=== PATIENT | female | born 1940 | race Hispanic/Latino ===

== ENCOUNTER 2017-07-16 21:35 | Inpatient (IN) | payer OTHER ==
[~2017-07-16] VITALS: Ht 149.9 cm; Wt 44.1 kg
[2017-07-16 22:33] LABS: BASOPHILS % 0.4 % (0.0-1.0); EOSINOPHILS # (AUTO) 0.1 (0.0-0.4); EOSINOPHILS % 1.3 % (0.0-6.0); LYMPHOCYTES # (AUTO) 1.6 (1.0-3.2); LYMPHOCYTES % 14.2 % (18.0-39.1); MEAN CORPUSCULAR HEMOGLOBIN 25.6 pg (28-32); MEAN CORPUSCULAR HGB CONC 30.7 g/dL (31-35); MEAN CORPUSCULAR VOLUME 83.2 fL (81-99); MONOCYTES # (AUTO) 0.7 (0.2-0.8); MONOCYTES % 6.2 % (4.4-11.3); NEUTROPHILS # (AUTO) 8.5 (2.1-6.9); NEUTROPHILS % 77.4 % (38.7-80.0); PLATELET COUNT 589 x10e3/uL (140-360); RED BLOOD COUNT 2.62 x10e6/uL (3.6-5.1)
[2017-07-16 22:38] LABS: HEMOGLOBIN 6.7 g/dL (12.0-16.0)
[2017-07-16 22:39] LABS: HEMATOCRIT 21.8 % (34.2-44.1)
[2017-07-16 22:47] LABS: INR 0.97; PROTHROMBIN TIME 12.1 seconds (11.9-14.5)
[2017-07-16 23:00] LABS: ALBUMIN 2.5 g/dL (3.5-5.0); ALBUMIN/GLOBULIN RATIO 0.5 (0.8-2.0); CALCIUM 9.8 mg/dL (8.4-10.2); CREATININE, SERUM 3.8 mg/dL (0.57-1.11)
[2017-07-17] VITALS (9 sets, daily range): BP systolic 137–171; BP diastolic 58–69
[2017-07-17] MEDS ORDERED: DEXTROSE 50% SYRINGE 50 ML IV PRN (00:15)
[2017-07-17] MEDS ORDERED: SODIUM CHLORIDE 0.9% 250ML 250 ML IV ONE (00:15)
[2017-07-17] MEDS ORDERED: SODIUM CHLORIDE FLUSH 10 ML SYR INJ PRN (00:15)
[2017-07-17] MEDS ORDERED: ONDANSETRON HCL 4 MG ORAL DISINTEGRATING TAB PO PRN (00:15)
[2017-07-17] MEDS ORDERED: LEVEMIR100 UNIT/1 SC (03:24)
[2017-07-17] MEDS ORDERED: SIMVASTATIN40 MG PO (03:24)
[2017-07-17] MEDS ORDERED: CLOPIDOGREL75 MG PO (03:24)
[2017-07-17] MEDS ORDERED: AMLODIPINE BESYL5 MG PO (03:24)
[2017-07-17] MEDS ORDERED: ASPIR 8181 MG PO (03:24)
[2017-07-17] MEDS ORDERED: OMEPRAZOLE40 MG PO (03:24)
[2017-07-17] MEDS ORDERED: LEVETIRACETAM500 MG PO (03:24)
[2017-07-17] MEDS ORDERED: METOPROLOL TART50 MG PO (03:24)
[2017-07-17] MEDS ORDERED: HEMOCYTE PO (03:24)
[2017-07-17] MEDS ORDERED: CLONIDINE HCL0.1 MG PO (03:24)
[2017-07-17] MEDS ORDERED: SODIUM CHLORIDE 0.9% 250ML 250 ML ONE ×2 (03:29→07:48)
[2017-07-17] MEDS: FUROSEMIDE INJ 10 MG/ML 2 ML VIAL IV SCH ×2 (06:42→12:05)
[2017-07-17] MEDS: INSULIN REGULAR, HUMAN 100 UNIT/1 ML 3ML VIAL SQ SCH ×4 (07:30→21:38)
[2017-07-17] MEDS ORDERED: CLONIDINE HCL 0.1 MG TAB PO PRN (10:30)
[2017-07-17] MEDS ORDERED: AMLODIPINE BESYLATE 5 MG TAB PO PRN (10:30)
[2017-07-17] MEDS ORDERED: POTASSIUM CHLORIDE 20 MEQ TAB CR PO ONE (11:15)
[2017-07-17] MEDS ORDERED: SODIUM BICARBONATE 650 MG TAB PO SCH (14:00)
[2017-07-17 14:19] LABS: BASOPHILS # (AUTO) 0.1 (0.0-0.1); BASOPHILS % 0.7 % (0.0-1.0); EOSINOPHILS # (AUTO) 0.2 (0.0-0.4); EOSINOPHILS % 1.4 % (0.0-6.0); HEMATOCRIT 33.9 % (34.2-44.1); LYMPHOCYTES # (AUTO) 1.2 (1.0-3.2); LYMPHOCYTES % 9.9 % (18.0-39.1); MEAN CORPUSCULAR HEMOGLOBIN 27.5 pg (28-32); MEAN CORPUSCULAR HGB CONC 32.4 g/dL (31-35); MEAN CORPUSCULAR VOLUME 84.8 fL (81-99); MONOCYTES # (AUTO) 0.4 (0.2-0.8); MONOCYTES % 3.7 % (4.4-11.3); NEUTROPHILS # (AUTO) 9.9 (2.1-6.9); NEUTROPHILS % 83.9 % (38.7-80.0); PLATELET COUNT 541 x10e3/uL (140-360); RED CELL DISTRIBUTION WIDTH 15.2 % (11.7-14.4)
[2017-07-17 14:35] LABS: ANION GAP 16.9 mmol/L (8-16); CALCIUM 10.3 mg/dL (8.4-10.2); CREATININE, SERUM 3.82 mg/dL (0.57-1.11); POTASSIUM 4.9 mmol/L (3.5-5.1)
[2017-07-17] MEDS: LEVETIRACETAM 500 MG TAB PO SCH (16:56)
[2017-07-17] MEDS: SODIUM BICARBONATE 650 MG TAB PO SCH (17:05)
--- NOTE | 2017-07-17 17:36 | Consultation ---
DATE OF CONSULTATION: July 17, 2017 History primarily from the patient. REASON FOR CONSULTATION: Acute kidney injury. HISTORY OF PRESENT ILLNESS: A 77-year-old female who was quite thin built, emaciated. She had been admitted to the hospital with anemia. PAST MEDICAL HISTORY: Significant for hypertension, type 2 diabetes, peripheral neuropathy. Patient denies any prior history of any renal insufficiency, kidney stone disease or hematuria. Follows Dr. Vasu Ricci as an outpatient. REVIEW OF SYSTEMS: Currently denies chest pain, shortness of breath, nausea or vomiting. ALLERGIES: CIPRO. CURRENT MEDICATIONS: Please see MAR for details. She is actively on sodium bicarbonate 1300 mg p.o. q.4 h., which I am going to stop. She is on Tylenol p.r.n., amlodipine 5 mg daily p.r.n., aspirin 81 mg to chew, clonidine 0.1 mg p.r.n., Plavix 75 mg daily, insulin, Keppra 750 mg p.o. b.i.d., metoprolol 50 mg daily, pantoprazole 40 mg daily. She is on simvastatin 40 mg nightly. CURRENT LABS: Show white count of 11.8. Hemoglobin 11, status post transfusion. Platelets 541. Chemistry shows iron level of 248, total iron binding capacity of 283, 88% iron saturation, transferrin of 208. Chemistry shows sodium 134, potassium 4.9. Creatinine 3.8. Bicarbonate 21. Blood sugar 294. Calcium 10.3. Albumin of 2.5. Yesterday calcium was 9.8. She is also stool occult blood positive. She had a carotid Doppler study done. SOCIAL HISTORY: Does not smoke or drink. PHYSICAL EXAMINATION: GENERAL: Awake, alert, lying supine. No apparent distress. VITALS: Blood pressure 142/61, pulse rate 80. HEAD AND NECK: Thin-built thin female with poor muscle mass. Neck veins flat. Quite emaciated with bitemporal wasting and sunken eyes. LUNGS: Decreased air entry, poor voluntary effort. No rales. HEART: S1 and S2 audible. Soft 2-3/6 ejection systolic murmur heard over left sternal border. ABDOMEN: Otherwise soft and nontender. LOWER EXTREMITY EXAMINATION: Shows no edema. IMPRESSION AND PLAN: Acute kidney injury, possible acute tubular necrosis. Underlying long-standing diabetes. Multiple comorbidities. Will discontinue p.o. bicarbonate. Has significantly elevated iron levels and elevated calcium. Will repeat. Calcium was normal yesterday at 10.3. Today I will repeat all these labs. Obtain spot urine protein creatinine ratio. Adjust the dose sodium bicarbonate from q.4 to 3 times a day. She does have evidence of distal renal tubular acidosis, probably related to diabetic nephropathy with an acute injury component. Workup ordered. Discussed with son. Discussed with patient. Please see orders. Job#: [id number] HIMANSHU
--- NOTE | 2017-07-17 18:21 | History and Physical ---
CLINICAL HISTORY: This is a 77-year-old white woman, patient of Dr. Berry Ricci, admitted via the emergency room because of severe anemia with hemoglobin of 6.7. According to the family, she had similar episodes in 2016 when she was admitted to [facility] and required blood transfusion. She has seen Dr. Mujica for gastroenterology and had endoscopy on 12/07/2016 because of peptic ulcer disease. Reportedly, there was no internal bleeding at that time. The patient takes iron tablets on a regular basis and, therefore, her stool is always black. She has been taking iron for at least 4 months. It is not clear whether her INR was still normal on whether she has low level Epogen because she also has chronic kidney disease. Her BUN is 92, creatinine 3.8. Apparently, she is not followed by nephrology on a regular basis. GFR is already down to 12. PAST MEDICAL HISTORY: Remarkable for diabetes, hypertension, hyperlipidemia. Reportedly, she had 2 strokes in 2002 effecting her left side. She had a third stroke in 2015 also effecting the left side. Son apparently is blaming [facility] for her strokes, reportedly caused by intubation and by central line. I have explained that these are probably not the causes of her stroke. BUN and creatinine had from explained the patient probably not the cause of her stroke. It is not clear whether she has had a previous stroke workup. She is, however, still taking Plavix in the setting of severe anemia. In addition to all this, she has seizure disorder and is taking Keppra. MEDICATIONS: Include aspirin 81 mg per day, amlodipine 5 mg p.o. daily, clonidine 0.1 mg p.o. t.i.d., insulin 20 units nightly, Keppra 750 mg p.o. b.i.d., metoprolol tartrate 50 mg p.o. daily, omeprazole 40 mg p.o. daily, simvastatin 40 mg p.o. daily. She is taking 106 mg p.o. b.i.d. PAST SURGICAL HISTORY: section, appendectomy and tonsillectomy. FAMILY HISTORY: Father had coronary artery disease. Mother had diabetes. Sister and 2 brothers had diabetes. SOCIAL HISTORY: Denies smoking, drinking or drug abuse. She is disabled. She is essentially 100% care need, confined to her bed except getting around in a wheelchair. She wears a diaper. She has a healthcare provider at home, and son helps her with the rest. REVIEW OF SYSTEMS: Noncontributory. PHYSICAL EXAMINATION: GENERAL: She is alert and coherent, somewhat lethargic. Speaks slowly and softly, difficult to understand. CARDIOVASCULAR: Jugular veins are not distended. S1 and S2 were regular. There are no appreciable murmurs. LUNGS: Clear. ABDOMEN: Soft. Bowel sounds are present. EXTREMITIES: Showed no cyanosis, clubbing or edema. LABORATORY: [place] [id number] hemoglobin 6.7 platelet count 500 and 9000. BUN is 22 creatinine 3.8 bicarb 18 potassium 5.0 sodium 131. As mentioned, her white count is 10,900, hemoglobin of 6.7 and platelet count 509,000. BUN is 92. Creatinine 3.8. Bicarb 18. Potassium 5.0. Sodium 131. IMPRESSION: 1. Severe anemia with hemoglobin 6.7 with last transfusion 2 years ago of undetermined etiology. Since her stool is black caused by iron tablets, we are not sure whether she is still bleeding. We are unable to get sed rate, Epogen level or iron level since the patient already started on transfusion. No doubt her renal insufficiency contributes to her anemia and she may benefit from Epogen. 2. Previous peptic ulcer disease. 3. Chronic kidney disease. GFR 12. 4. Diabetes. 5. Hypertension. 6. Hyperlipidemia. 7. Three previous cerebrovascular accidents between 2002 and 2016. 8. Seizure disorder, related stroke. RECOMMENDATIONS: Continue blood transfusion. GI and renal consultation. Consider Epogen injection. Consider workup for her seizures including EKG, echocardiogram, Doppler scan of the carotids if not previously done. She may require repeat endoscopy. Job#: [id number] cc:DEIDRE MUJICA MD cc:BERRY RICCI MD
--- NOTE | 2017-07-17 20:16 | Diagnostic Imaging Report ---
EXAM: CHEST 2 VIEWS, PA and lateral INDICATION: Weakness, CHF COMPARISON: None FINDINGS: LINES/TUBES: None LUNGS: No consolidations or edema. PLEURA: No effusions or pneumothorax. HEART AND MEDIASTINUM: Normal size and contour. BONES AND SOFT TISSUES: No acute findings. Old posterior left rib fracture. IMPRESSION: No evidence of pulmonary edema. No acute thoracic abnormality. Signed by: Dr. Latonia Pastrana M.D. on 07/17/2017 8:13 PM
[2017-07-17] MEDS: SIMVASTATIN 40 MG TAB PO SCH (21:37)
[2017-07-18] VITALS (9 sets, daily range): BP systolic 124–163; BP diastolic 60–68
--- NOTE | 2017-07-18 03:32 | Diagnostic Imaging Report ---
EXAM: Renal Ultrasound INDICATION: Chronic anemia COMPARISON: None TECHNIQUE: Transverse and longitudinal sonographic images of the kidneys and bladder were obtained. FINDINGS: RIGHT KIDNEY: 9.5 x 4.9 x 5.4 cm, normal cortical thickness. Echogenicity: Normal Hydronephrosis: Mild Calculi: None Cyst/Mass: Simple cyst measuring 2.1 x 1.8 x 1.7 cm LEFT KIDNEY: 8.9 x 6 x 6.7 cm, normal cortical thickness. Echogenicity: Normal Hydronephrosis: Moderate Calculi: None Cyst/Mass: None BLADDER: Decompressed by Price catheter. IMPRESSION: Moderate left and mild right hydronephrosis. Signed by: Dr. Latonia Pastrana M.D. on 07/18/2017 3:28 AM
[2017-07-18] MEDS: METOPROLOL TARTRATE 50 MG TAB PO SCH (04:51)
[2017-07-18 06:07] LABS: BASOPHILS # (AUTO) 0.1 (0.0-0.1); BASOPHILS % 0.6 % (0.0-1.0); EOSINOPHILS # (AUTO) 0.1 (0.0-0.4); EOSINOPHILS % 0.4 % (0.0-6.0); HEMATOCRIT 36.6 % (34.2-44.1); HEMOGLOBIN 11.9 g/dL (12.0-16.0); LYMPHOCYTES # (AUTO) 0.8 (1.0-3.2); MEAN CORPUSCULAR HEMOGLOBIN 27.2 pg (28-32); MEAN CORPUSCULAR HGB CONC 32.5 g/dL (31-35); MEAN CORPUSCULAR VOLUME 83.8 fL (81-99); MONOCYTES # (AUTO) 0.7 (0.2-0.8); MONOCYTES % 4.2 % (4.4-11.3); NEUTROPHILS # (AUTO) 14.9 (2.1-6.9); NEUTROPHILS % 89.4 % (38.7-80.0); PLATELET COUNT 573 x10e3/uL (140-360); RED BLOOD COUNT 4.37 x10e6/uL (3.6-5.1); RED CELL DISTRIBUTION WIDTH 15.4 % (11.7-14.4)
[2017-07-18 06:29] LABS: ALBUMIN 2.8 g/dL (3.5-5.0); ALBUMIN/GLOBULIN RATIO 0.6 (0.8-2.0); ANION GAP 19.6 mmol/L (8-16); CALCIUM 10.1 mg/dL (8.4-10.2); CREATININE, SERUM 3.71 mg/dL (0.57-1.11); POTASSIUM 4.6 mmol/L (3.5-5.1)
[2017-07-18] MEDS: INSULIN REGULAR, HUMAN 100 UNIT/1 ML 3ML VIAL SQ SCH ×4 (08:03→20:21)
[2017-07-18] MEDS: INSULIN DETEMIR 100 UNIT/ML PEN SQ SCH (08:07)
[2017-07-18] MEDS: LEVETIRACETAM 500 MG TAB PO SCH ×2 (08:07→16:37)
[2017-07-18] MEDS: SODIUM BICARBONATE 650 MG TAB PO SCH ×2 (08:07→16:38)
[2017-07-18] MEDS: PANTOPRAZOLE SOD 40 MG TABEC PO SCH (08:07)
[2017-07-18] MEDS ORDERED: CLOPIDOGREL BISULFATE 75 MG TAB PO SCH (09:00)
[2017-07-18] MEDS ORDERED: ASPIRIN 81 MG CHEW TAB PO SCH (09:00)
--- NOTE | 2017-07-18 13:09 | Cardiology Report ---
DATE OF STUDY: July 17, 2017 DOPPLER SCAN OF THE CAROTIDS The left and right carotid arteries were interrogated using the Duplex scanning method. There is moderate plaquing in both carotid bulbs. However, there was no high-grade stenosis. Vertebral flow appears to be normal direction bilaterally. CONCLUSION: 1. No high-grade stenosis bilaterally. 2. Moderate plaquing noted in both carotid bulbs. 3. Mild intimal thickening and plaquing elsewhere bilaterally. 4. Vertebral flow appears to be normal direction bilaterally. Job#: [id number]
--- NOTE | 2017-07-18 13:12 | Cardiology Report ---
DATE OF STUDY: July 17, 2017 ECHOCARDIOGRAM M-MODE: Normal chamber wall dimensions. Normal contractility. Aortic sclerosis. Normal mitral and tricuspid valves. No pericardial effusion. SECTOR SCAN: Normal chamber wall dimensions. Normal contractility. Ejection fraction is approximately 60%. Aortic valve sclerotic. Mitral and tricuspid valves are normal. There is no pericardial effusion. CARDIAC DOPPLER STUDY WITH COLOR: Trace mitral regurgitation. CONCLUSION: 1. Aortic sclerosis without stenosis. 2. Trace mitral regurgitation. 3. Left ventricular ejection fraction is approximately 60%. Job#: [id number]
[2017-07-18] MEDS: ACETAMINOPHEN 325 MG TAB PO PRN (19:23)
[2017-07-18] MEDS: SIMVASTATIN 40 MG TAB PO SCH (20:36)
[2017-07-19] VITALS (7 sets, daily range): BP systolic 90–178; BP diastolic 40–84
[2017-07-19] MEDS: ACETAMINOPHEN 325 MG TAB PO PRN (06:20)
[2017-07-19 06:43] LABS: ALBUMIN 2.5 g/dL (3.5-5.0); ALBUMIN/GLOBULIN RATIO 0.6 (0.8-2.0); ANION GAP 16.2 mmol/L (8-16); CALCIUM 9.1 mg/dL (8.4-10.2); CREATININE, SERUM 3.79 mg/dL (0.57-1.11); POTASSIUM 4.2 mmol/L (3.5-5.1)
[2017-07-19] MEDS: INSULIN REGULAR, HUMAN 100 UNIT/1 ML 3ML VIAL SQ SCH ×4 (07:30→21:40)
[2017-07-19] MEDS: METOPROLOL TARTRATE 50 MG TAB PO SCH (07:44)
[2017-07-19] MEDS: PANTOPRAZOLE SOD 40 MG TABEC PO SCH (08:13)
[2017-07-19] MEDS: SODIUM BICARBONATE 650 MG TAB PO SCH ×2 (09:00→17:00)
[2017-07-19] MEDS: LEVETIRACETAM 500 MG TAB PO SCH ×2 (10:33→17:00)
[2017-07-19] MEDS ORDERED: SODIUM BICARBONATE 650 MG TAB PO ONE ×2 (11:30→17:00)
[2017-07-19] MEDS: INSULIN DETEMIR 100 UNIT/ML PEN SQ SCH (12:04)
[2017-07-19 13:14] LABS: CREATININE,URINE RANDOM 20.74 mg/dL (47-110)
[2017-07-19 13:43] LABS: TOTAL PROTEIN 24HR, URINE 3249.6 mg/24hr (50-100); TOTAL PROTEIN, URINE 270.8 mg/dL (1-14)
[2017-07-19] MEDS ORDERED: SODIUM CHLORIDE 0.9% 1000ML 1,000 ML IV ONE (16:00)
[2017-07-19 16:38] LABS: CREATININE,URINE RANDOM 22.87 mg/dL (47-110)
[2017-07-19] MEDS ORDERED: ALBUMIN 25% 12.5GM 0.25 GM/ML BTL IV ONE (17:00)
[2017-07-19 17:21] LABS: BASOPHILS # (AUTO) 0.1 (0.0-0.1); BASOPHILS % 0.6 % (0.0-1.0); EOSINOPHILS # (AUTO) 0.5 (0.0-0.4); HEMATOCRIT 28.2 % (34.2-44.1); LYMPHOCYTES # (AUTO) 1.5 (1.0-3.2); LYMPHOCYTES % 11.3 % (18.0-39.1); MEAN CORPUSCULAR HEMOGLOBIN 27.2 pg (28-32); MEAN CORPUSCULAR HGB CONC 31.9 g/dL (31-35); MEAN CORPUSCULAR VOLUME 85.2 fL (81-99); MONOCYTES % 7.5 % (4.4-11.3); NEUTROPHILS # (AUTO) 10.3 (2.1-6.9); NEUTROPHILS % 76.2 % (38.7-80.0); PLATELET COUNT 420 x10e3/uL (140-360); RED BLOOD COUNT 3.31 x10e6/uL (3.6-5.1); RED CELL DISTRIBUTION WIDTH 15.8 % (11.7-14.4)
[2017-07-19] MEDS: SIMVASTATIN 40 MG TAB PO SCH (21:43)
[2017-07-20 01:26] VITALS: BP 156/61
[2017-07-20 05:44] VITALS: BP 137/57
[2017-07-20] MEDS: INSULIN REGULAR, HUMAN 100 UNIT/1 ML 3ML VIAL SQ SCH (07:30)
[2017-07-20] MEDS: PANTOPRAZOLE SOD 40 MG TABEC PO SCH (07:30)
[2017-07-20 07:31] LABS: BASOPHILS # (AUTO) 0.1 (0.0-0.1); BASOPHILS % 0.5 % (0.0-1.0); EOSINOPHILS # (AUTO) 0.5 (0.0-0.4); EOSINOPHILS % 3.6 % (0.0-6.0); HEMATOCRIT 28.6 % (34.2-44.1); HEMOGLOBIN 9.2 g/dL (12.0-16.0); LYMPHOCYTES # (AUTO) 1.2 (1.0-3.2); LYMPHOCYTES % 8.6 % (18.0-39.1); MEAN CORPUSCULAR HEMOGLOBIN 27.5 pg (28-32); MEAN CORPUSCULAR HGB CONC 32.2 g/dL (31-35); MEAN CORPUSCULAR VOLUME 85.4 fL (81-99); MONOCYTES % 7.3 % (4.4-11.3); NEUTROPHILS # (AUTO) 11.2 (2.1-6.9); NEUTROPHILS % 79.6 % (38.7-80.0); PLATELET COUNT 438 x10e3/uL (140-360); RED BLOOD COUNT 3.35 x10e6/uL (3.6-5.1); RED CELL DISTRIBUTION WIDTH 15.8 % (11.7-14.4)
[2017-07-20 07:50] LABS: ALBUMIN 2.9 g/dL (3.5-5.0); ALBUMIN/GLOBULIN RATIO 0.8 (0.8-2.0); ANION GAP 16.7 mmol/L (8-16); CALCIUM 8.6 mg/dL (8.4-10.2); CREATININE, SERUM 3.96 mg/dL (0.57-1.11); POTASSIUM 3.7 mmol/L (3.5-5.1)
[2017-07-20 08:00] VITALS: BP 137/57
[2017-07-20 08:10] VITALS: BP 136/54
[2017-07-20] MEDS: INSULIN DETEMIR 100 UNIT/ML PEN SQ SCH (09:00)
[2017-07-20] MEDS: LEVETIRACETAM 500 MG TAB PO SCH (09:00)
[2017-07-20] MEDS: SODIUM BICARBONATE 650 MG TAB PO SCH (09:00)
[2017-07-20] MEDS ORDERED: METOPROLOL TART25 MG PO (09:30)
[2017-07-20] MEDS ORDERED: SODIUM BICARBO650 MG PO (09:37)
--- NOTE | 2017-07-20 13:05 | Discharge Summary ---
CLINICAL HISTORY: This is a 77-year-old woman admitted via the emergency room because of severe anemia requiring blood transfusion and because of metabolic acidosis, end-stage renal disease, potassium 5.0. Please refer to my previous dictations concerning details of current illness, past medical history, personal and social history, family history, review of systems, physical examination, initial laboratory studies. HOSPITAL COURSE: The patient was given bicarbonate therapy with improvement of acidosis as well as potassium with potassium coming down to the 3.7 range. The patient was given blood transfusion, hemoglobin increasing from 6.7 to 11.9 before settling at 9.2. Her stool guaiac was positive. She had previously seen Dr. David Mujica, and a consultation was placed with Dr. David Mujica. She did develop 1 bout of hypotension, and this was felt to be related to volume depletion as well as blood pressure medications. Her Norvasc was discontinued. Metoprolol was withheld but later resumed at 25 mg b.i.d. instead of 50 mg daily. Blood cultures were negative. There was no fever. White count was initially 10,900, remained in a slightly elevated range at 14 at the time of discharge. Urine culture showed no pathology. Blood culture is still pending. During this hospitalization, the patient had a 24-hour urine collection for creatinine, which showed a total protein of 3.2 grams, a urine creatinine of 22. A repeat guaiac was negative. Hepatitis profile still pending. INR was 0.97. The patient was given an option of not having dialysis or have dialysis, and we recommend strongly that she get a dialysis catheter to get ready for dialysis. Nevertheless, the patient also had the option of not deciding. The son, however, after having it explained multiple times that these were the options, had claimed that we were trying to force him to sign the consent for dialysis. Initially he said he probably would be in favor of dialysis but was concerned about transportation issues since he has to work. Based on that, we had set her up to have a dialysis catheter placed by [facility]. However, the night before, the patient's son suddenly said that he was expecting his mother to be discharged. At that point, her blood pressure was slightly low and we decided to give her some fluid and withhold her blood pressure medications, and blood pressure returned to normal. We recommend that she discontinue amlodipine and to take metoprolol 25 mg b.i.d. As repeat stool guaiac was negative, we decided that this can be followed further on outpatient basis by Dr. Mujica. She had no further urinary bleeding. Hemoglobin at the time of discharge was 9.2 and stable. The patient is to follow up with Dr. David Mujica in 3 to 7 days, Dr. Mansoor Avendaño in 3 to 7 days, Dr. Ricci in 7 days. Discharge medications are: Metoprolol tartrate 25 mg b.i.d. Sodium bicarbonate 650 mg p.o. daily. Clopidogrel 75 mg p.o. daily to be withheld if there is bleeding. Detemir insulin 25 units nightly. Keppra 750 mg b.i.d. Omeprazole 40 mg daily. Simvastatin 40 mg daily. Hemocyte 106 mg p.o. b.i.d. She was given activity, diet, medication and followup instructions. NIKUNJ CARABALLO MD Job#: [id number] EV cc:MD MANSOOR TURK MD DANIEL DARMADI, MD
== END 2017-07-20 12:41 | disposition home or self-care (01) | DRG 682 ==
LOC: ER 21:35 → ERHOLD 07-17 00:55 → IMCU 07-17 01:34 → OBSVTOIN 07-19 14:25 → MED/SURG2 07-19 16:12
PROVIDERS: ADMIT Internal Medicine Cardiovascular Disease; ATTEND Internal Medicine Cardiovascular Disease
PROC: 30250N1 (ICD-10-PCS; principal; 2017-07-17)
DX: I12.0 Hypertensive chronic kidney disease with stage 5 chronic kidney disease or end stage renal disease (principal); N18.6 End stage renal disease; N17.0 Acute kidney failure with tubular necrosis; E87.2 Acidosis; I69.354 Hemiplegia and hemiparesis following cerebral infarction affecting left non-dominant side; E87.1 Hypo-osmolality and hyponatremia; E11.22 Type 2 diabetes mellitus with diabetic chronic kidney disease; Z99.2 Dependence on renal dialysis; E86.0 Dehydration; E86.9 Volume depletion, unspecified; Z87.442 Personal history of urinary calculi; E11.21 Type 2 diabetes mellitus with diabetic nephropathy; Z79.4 Long term (current) use of insulin; D63.1 Anemia in chronic kidney disease; G40.909 Epilepsy, unspecified, not intractable, without status epilepticus; Z87.11 Personal history of peptic ulcer disease; E78.5 Hyperlipidemia, unspecified; N93.9 Abnormal uterine and vaginal bleeding, unspecified; Z53.29 Procedure and treatment not carried out because of patient's decision for other reasons
CPT/HCPCS: 36415; 71046; 76770; 80048; 80053; 81050; 82270; 82533; 82570; 82575; 82948; 83540; 83970; 84156; 84466; 84550; 85025; 85610; 85730; 86704; 86706; 86803; 86850; 86900; 86920; 87040; 87086; 93005; 93306; 93880; 99284; G0378; J1940; J7030; J7050; P9016

== ENCOUNTER 2017-10-01 16:09 | Inpatient (IN) | payer MEDICARE, OTHER ==
[~2017-10-01] VITALS: Ht 149.9 cm; Wt 47.7 kg
[2017-10-01] VITALS (16 sets, daily range): BP systolic 94–130; BP diastolic 43–63
[~2017-10-01 16:09] MED LIST: AMLODIPINE BESYL5 MG PO; ASPIR 8181 MG PO; CLONIDINE HCL0.1 MG PO; CLOPIDOGREL75 MG PO; HEMOCYTE PO; LEVEMIR100 UNIT/1 SC; LEVETIRACETAM500 MG PO; METOPROLOL TART25 MG PO; METOPROLOL TART50 MG PO; OMEPRAZOLE40 MG PO; SIMVASTATIN40 MG PO; SODIUM BICARBO650 MG PO
[2017-10-01] MEDS ORDERED: DEXTROSE 50% SYRINGE 50 ML IV ONE ×2 (16:42→22:40)
[2017-10-01 17:07] LABS: BASOPHILS % 0.2 % (0.0-1.0); EOSINOPHILS % 0.2 % (0.0-6.0); LYMPHOCYTES # (AUTO) 0.7 (1.0-3.2); LYMPHOCYTES % 5.2 % (18.0-39.1); MEAN CORPUSCULAR HEMOGLOBIN 29.4 pg (28-32); MEAN CORPUSCULAR HGB CONC 32.9 g/dL (31-35); MEAN CORPUSCULAR VOLUME 89.4 fL (81-99); MONOCYTES # (AUTO) 0.7 (0.2-0.8); MONOCYTES % 4.9 % (4.4-11.3); NEUTROPHILS # (AUTO) 12.3 (2.1-6.9); PLATELET COUNT 633 x10e3/uL (140-360); RED CELL DISTRIBUTION WIDTH 17.6 % (11.7-14.4)
[2017-10-01 17:08] LABS: HEMATOCRIT 16.1 % (34.2-44.1); HEMOGLOBIN 5.3 g/dL (12.0-16.0)
[2017-10-01 17:12] LABS: INR 1.23; PROTHROMBIN TIME 14.6 seconds (11.9-14.5)
[2017-10-01 17:13] LABS: PARTIAL THROMBOPLASTIN TIME 39.6 seconds (23.8-35.5)
[2017-10-01] MEDS ORDERED: SODIUM CHLORIDE 0.9% 250ML 250 ML IV ONE ×4 (17:15→20:45)
[2017-10-01 17:29] LABS: CREATINE KINASE MB 3.2 ng/mL (0-5.0)
[2017-10-01] MEDS ORDERED: INSULIN REGULAR, HUMAN 100 UNIT/1 ML 3ML VIAL IV ONE (17:30)
[2017-10-01] MEDS ORDERED: SOD POLYSTYRENE SULFONATE SUSP 15 GM/60 ML BTL PO ONE (17:30)
[2017-10-01] MEDS ORDERED: CALCIUM GLUCONATE 10% INJ 4.65 MEQ in SODIUM CHLORIDE 0.9% 50ML 50 ML IV ONE (17:30)
[2017-10-01 17:31] LABS: ALBUMIN 2.7 g/dL (3.5-5.0); ALBUMIN/GLOBULIN RATIO 0.6 (0.8-2.0); ANION GAP 25.5 mmol/L (8-16); CALCIUM 9.2 mg/dL (8.4-10.2); CREATININE, SERUM 5.83 mg/dL (0.57-1.11)
[2017-10-01 17:32] LABS: POTASSIUM 7.5 mmol/L (3.5-5.1)
--- NOTE | 2017-10-01 17:41 | Diagnostic Imaging Report ---
EXAMINATION: CHEST SINGLE (PORTABLE) INDICATION: \S\lethargy \S\[id number] \S\1705 COMPARISON: Chest radiograph 07/17/2017 FINDINGS: AP view TUBES and LINES: None. LUNGS: Lungs are well inflated. Lungs are clear. There is no evidence of pneumonia or pulmonary edema. PLEURA: No pleural effusion or pneumothorax. HEART AND MEDIASTINUM: Aortic arch calcifications. The cardiomediastinal silhouette is unremarkable. BONES AND SOFT TISSUES: No acute osseous lesion. Old left rib fracture. Soft tissues are unremarkable. UPPER ABDOMEN: No free air under the diaphragm. IMPRESSION: No acute thoracic abnormality. Signed by: DR. Fawad Cisneros MD on 10/01/2017 5:37 PM
[2017-10-01] MEDS ORDERED: SODIUM CHLORIDE 0.9% 1000ML 1,000 ML IV SCH ×2 (18:00→18:54)
[2017-10-01 18:11] LABS: ALBUMIN 2.4 g/dL (3.5-5.0); ALBUMIN/GLOBULIN RATIO 0.6 (0.8-2.0); ANION GAP 22.9 mmol/L (8-16); CALCIUM 8.8 mg/dL (8.4-10.2); CREATININE, SERUM 5.86 mg/dL (0.57-1.11)
[2017-10-01 18:13] LABS: POTASSIUM 6.9 mmol/L (3.5-5.1)
[2017-10-01] MEDS ORDERED: PANTOPRAZOLE 40 MG 10ML VIAL IV ONE (18:30)
--- NOTE | 2017-10-01 18:32 | Diagnostic Imaging Report ---
ADDENDUM #1 Dose modulation, iterative reconstruction, and/or weight based adjustment of the mA/kV was utilized to reduce the radiation dose to as low as reasonably achievable. Signed by: Dr. Alexia eHrnandez M.D. on 10/11/2017 10:00 AM ORIGINAL REPORT EXAMINATION: Head CT HISTORY: Altered mental status COMPARISON: None. TECHNIQUE: Multidetector axial images were obtained without contrast from the foramen magnum to the vertex . The images were reconstructed using brain and bone algorithms. Thin section brain images were reformatted into coronal and sagittal planes. Image quality: Motion/streaking artifact limits the evaluation of the skull base and posterior cranial fossa. FINDINGS: Parenchyma: 1. Cortico-subcortical encephalomalacia in the right superior middle and inferior frontal gyri as well as the left middle and superior frontal gyri. 2. Chronic lacunar infarct in the genu of the right internal capsule with ipsilateral Wallerian degeneration. 3. No mass or hemorrhage. No CT evidence of acute territorial vascular insult. Extra-axial spaces:No abnormal density. No extra-axial fluid collections Brain volume: Generalized volume loss more that what is expected for age. Ventricles: No hydrocephalus or displacement. Arteries: No density suggestive of thrombus. Dural sinuses: No abnormal density. Extra-axial spaces: No abnormal density. Foramen magnum: No mass, Chiari malformation, or basilar invagination. Sella: No obvious mass. Paranasal/mastoid sinuses: Imaged portions unremarkable. Skull/Scalp: No lytic or blastic lesions. No fractures. IMPRESSION: 1. No acute intracranial hemorrhage or CT evidence of acute cortical infarct. 2. Bilateral frontal cortical infarcts. 3. Generalized brain volume lobes, more than what is expected for age. Signed by: Dr. Alexai Hernandez M.D. on 10/01/2017 6:28 PM
[2017-10-01] MEDS ORDERED: METOPROLOL TART50 MG PO (18:42)
[2017-10-01] MEDS ORDERED: CATAPRES-TTS 11 EACH TD (18:49)
[2017-10-01] MEDS ORDERED: ASPIR-LOW81 MG PO (18:51)
[2017-10-01] MEDS: PANTOPRAZOLE INJ 40 MG in SODIUM CHLORIDE 0.9% 50ML 50 ML IV SCH ×3 (19:00→22:28)
[2017-10-01 19:54] LABS: BILIRUBIN,URINE NEGATIVE (NEGATIVE); CLARITY,URINE CLOUDY (CLEAR); COLOR,URINE YELLOW (YELLOW); KETONES,URINE NEGATIVE (NEGATIVE); LEUKOCYTE ESTERASE ,URINE 2+ (NEGATIVE); NITRITE,URINE NEGATIVE (NEGATIVE); PROTEIN,URINE DIPSTICK 1+ (NEGATIVE); URINE UROBILINOGEN 0.2 mg/dL (0.2 - 1)
[2017-10-01 20:06] LABS: AMORPHOUS SEDIMENT,URINE FEW (FEW); BACTERIA,URINE MODERATE /HPF; RBC,URINE 0-5 /HPF (0-5)
--- NOTE | 2017-10-01 21:03 | Consultation ---
DATE OF CONSULTATION: October 01, 2017 The patient has existing history of chronic kidney disease. She presented with failure to thrive and with very poor oral intake. She is extremely cachectic. She does not follow any commands. She opens her eyes and says she is alright, but other than that unable to get review of systems. She has underlying history of hypertension, type 2 diabetes, peripheral neuropathy. She is followed by Dr. Vasu Ricci. She has existing history of chronic kidney disease, baseline creatinine 3.8. She comes in with life-threatening hyperkalemia. She was seen in Dr. Ricci's office and apparently had a very high potassium. She is also found to have elevated white count, 13.77, hemoglobin 5.3 with a potassium of 7.5, bicarbonate 14 with a BUN 172, creatinine 5.83. LFTs within normal limits. SOCIAL HISTORY: Patient lives at home. There is a provider. Son says he works during the day but leaves food behind for provider to feed her, but there are some issues going on with him, the insurance company and the provider. The patient is not being fed. ALLERGIES: CIPROFLOXACIN. SOCIAL HISTORY: The patient does not smoke or drink. PHYSICAL EXAMINATION: GENERAL: Awake, cachectic, thin-built female with no muscle mass at all with bitemporal wasting, sunken eyes and appears extremely malnourished. VITALS: Blood pressure 108/50, pulse rate 95, afebrile. Oxygen saturation 100%. HEAD AND NECK: Cornea clear. Oral mucosa dry. LUNGS: Relatively clear. HEART: S1 and S2 audible. ABDOMEN: Otherwise soft and nontender. LOWER EXTREMITY EXAMINATION: Shows no edema. IMPRESSION AND PLAN: Life-threatening hyperkalemia with acute kidney injury superimposed on chronic kidney disease. Discussed with Dr. Pritchett in the emergency room who had issues placing a dialysis catheter, finally agreed and by the time I got here the patient has a dialysis catheter in the right femoral vein. It is unclear why the reservation from the ER physician not to put a dialysis catheter in an emergent situation. Nevertheless, the patient will be transferred to ICU. Will be doing dialysis immediately. In the meantime, will start IV bicarbonate. Transfuse 1 unit of packed RBCs. Keep 2 units available to transfuse in the morning with dialysis. Patient will be dialyzed and an appropriate potassium bath. Patient has been given calcium gluconate as well as dextrose and insulin in the emergency room. Appears dehydrated, cachectic and malnourished. Must rule out GI bleed. Will consult GI immediately. Further recommendations to follow. Job#: [id number] HIMANSHU
[2017-10-01] MEDS: SODIUM BICARBONATE 8.4% SYRING 150 ML in DEXTROSE 5% 1,000 ML IV SCH (22:27)
[2017-10-01] MEDS: DEXTROSE 50% SYRINGE 50 ML IV PRN (23:00)
[2017-10-01] MEDS ORDERED: HEPARIN SOD (PORCINE) 1000 UNIT/ML SDV ONE (23:35)
[2017-10-02] VITALS (75 sets, daily range): BP systolic 96–159; BP diastolic 41–93
[2017-10-02] MEDS ORDERED: PANTOPRAZOLE 40 MG 10ML VIAL ONE ×2 (00:14→10:23)
[2017-10-02] MEDS ORDERED: PANTOPRAZOL IV ONE (00:16)
[2017-10-02] MEDS ORDERED: [UNRECOGNIZED DRUG - OTHER] IV ONE (00:16)
[2017-10-02] MEDS: PANTOPRAZOLE INJ 40 MG in SODIUM CHLORIDE 0.9% 50ML 50 ML IV SCH ×2 (00:34→10:00)
[2017-10-02 05:22] LABS: ALBUMIN 2.2 g/dL (3.5-5.0); ALBUMIN/GLOBULIN RATIO 0.6 (0.8-2.0); ANION GAP 17.8 mmol/L (8-16); CALCIUM 8.2 mg/dL (8.4-10.2); CREATININE, SERUM 2.64 mg/dL (0.57-1.11); POTASSIUM 3.8 mmol/L (3.5-5.1)
[2017-10-02] MEDS ORDERED: SODIUM CHLORIDE 0.9% 250ML 250 ML ONE (06:31)
[2017-10-02] MEDS: SODIUM BICARBONATE 8.4% SYRING 150 ML in DEXTROSE 5% 1,000 ML IV SCH ×2 (09:00→20:49)
--- NOTE | 2017-10-02 09:40 | Consultation ---
DATE OF CONSULTATION: GASTROENTEROLOGY CONSULTATION REASON FOR CONSULTATION: GI bleed. HISTORY OF PRESENT ILLNESS: Ms. Brumfield is a 77-year-old lady with a known history of chronic renal insufficiency, type 2 diabetes, hypertension, peripheral neuropathy, who came into the hospital with hyperkalemia. She was seen in Dr. Ricci's office and sent to the hospital with a potassium of 7.5. At the time, her hemoglobin was found to be 5.3. Liver function tests were normal. Creatinine was 5.8. The patient did have some dark stools. She had an endoscopy and a colonoscopy a year ago by Dr. Mujica, and was told she had ulcers in her stomach and hemorrhoids. PAST MEDICAL HISTORY: Hypertension, diabetes, chronic renal insufficiency. PAST SURGICAL HISTORY: Please see hospital records. ALLERGIES: CIPRO. SOCIAL HISTORY: Lives at home. Lives with her son. PHYSICAL EXAMINATION GENERAL: She is a frail, thin lady in no acute distress. HEENT: Anicteric. No enlarged nodes. No thyromegaly. LUNGS: Clear to auscultation. CV: S1 and S2 normal. No murmurs. ABDOMEN: Soft and nontender. Bowel sounds normal. EXTREMITIES: No edema. LABS AND X-RAYS: Hemoglobin 5.3, white count 13.7. INR normal. Urine normal. Stool occult blood positive. IMPRESSION: Melena in a 77-year-old lady with known history of peptic ulcer disease: Rule out upper gastrointestinal source of blood loss. RECOMMENDATIONS AND PLAN 1. IV Protonix. 2. ICU. 3. N.p.o. for EGD today. Plan of care was discussed with the patient and the son, and they agreed. Job#: [id number] CHRIS
[2017-10-02] MEDS: PANTOPRAZOL 40MG/SOD CHL 0.9% 50 ML IV SCH ×3 (12:11→23:14)
[2017-10-02] MEDS ORDERED: PROPOFOL IV EMULSION 10 MG/ML 50 ML VIAL ONE (14:58)
[2017-10-02] MEDS ORDERED: LIDOCAINE HCL 2% LOCAL INJ 5 ML SDV VIAL INJ ONE (14:58)
[2017-10-02 16:44] LABS: BASOPHILS # (AUTO) 0.1 (0.0-0.1); BASOPHILS % 0.5 % (0.0-1.0); EOSINOPHILS # (AUTO) 0.1 (0.0-0.4); EOSINOPHILS % 0.9 % (0.0-6.0); HEMATOCRIT 33.7 % (34.2-44.1); HEMOGLOBIN 11.9 g/dL (12.0-16.0); LYMPHOCYTES # (AUTO) 0.6 (1.0-3.2); LYMPHOCYTES % 5.1 % (18.0-39.1); MEAN CORPUSCULAR HEMOGLOBIN 28.9 pg (28-32); MEAN CORPUSCULAR HGB CONC 35.3 g/dL (31-35); MEAN CORPUSCULAR VOLUME 81.8 fL (81-99); MONOCYTES # (AUTO) 0.9 (0.2-0.8); MONOCYTES % 7.8 % (4.4-11.3); NEUTROPHILS # (AUTO) 9.3 (2.1-6.9); NEUTROPHILS % 85.1 % (38.7-80.0); PLATELET COUNT 336 x10e3/uL (140-360); RED BLOOD COUNT 4.12 x10e6/uL (3.6-5.1); RED CELL DISTRIBUTION WIDTH 16.6 % (11.7-14.4)
--- NOTE | 2017-10-02 19:59 | History and Physical ---
Ms. Brumfield is an elderly and debilitated 77-year-old woman who is brought to the emergency room by her son on the afternoon of October 01, 2017. HISTORY OF PRESENT ILLNESS: The son tells me that they came to the hospital after laboratory studies performed by Dr. Ricci on , September 30, 2017, apparently showed elevated potassium and low hemoglobin and hematocrit. The son tells me that he has a "care provider" at home, who he thinks was not doing a good job, and not feeding his mother adequately. He reports he could get her to eat when he cared for her and prepared foods. She apparently has continued to have black and tarry stools. PAST MEDICAL HISTORY: Significant for recent hospitalization at [facility] in June 2017 when she was offered hemodialysis, but son refused. She has had previous strokes evidently between 2002 and 2015 perhaps apparently affecting predominately her left side. She has long-standing diabetes and also seizure disorder. MEDICATIONS: At home include: 1. Aspirin 81 mg daily. 2. Amlodipine 5 mg daily. 3. Clonidine 0.1 mg t.i.d. 4. Insulin. 5. Keppra 750 mg b.i.d. 6. Metoprolol 50 mg daily. 7. Omeprazole 40 mg daily. 8. Simvastatin 40 mg daily. PAST SURGICAL HISTORY: She has had previous , appendectomy and tonsillectomy. FAMILY HISTORY: Father had coronary disease. Mother had diabetes. Sister and 2 brothers with diabetes. PHYSICAL EXAMINATION GENERAL: At this time shows a left lethargic woman who is difficult to arouse, but does move and can open her eyes. VITALS: Blood pressure 116/70, pulse 70 and regular. HEENT: Otherwise unremarkable. NECK: No jugular venous distention. THORAX: Heart sounds S1 and S2 are equal. No murmurs. LUNGS: Clear. ABDOMEN: Protuberant. Normal bowel sounds. EXTREMITIES: Thin. PERTINENT STUDIES: Shows a CT scan with bilateral frontal cortical infarcts, chronic in nature. No acute finding, but also volume loss. Chest x-ray shows aortic arch calcifications, old left rib fracture. Chemistry shows a potassium of 7.5, BUN 172, creatinine 5.83, glucose 33. CBC showed hemoglobin 5.3, hematocrit 16.1, white count 13.7, and platelet count 633,000. Urinalysis shows 11-20 white cells and 2+ leukocyte esterase. ASSESSMENT 1. End-stage renal failure: Continuing to progress since her previous hospitalization. 2. Hyperkalemia. 3. Severe anemia and blood loss with black stools that are guaiac positive. 4. Previous cerebrovascular accident. 5. Type 2 adult-onset diabetes. 6. History of seizure disorder. PLAN: Patient has already initiated dialysis and is awaiting endoscopy. I have discussed this with the son at bedside. Her prognosis is guarded. Job#: [id number] RI cc:MD DEIDRE BECERRA MD
[2017-10-03] VITALS (63 sets, daily range): BP systolic 59–194; BP diastolic 40–157
[2017-10-03] MEDS: PANTOPRAZOL 40MG/SOD CHL 0.9% 50 ML IV SCH ×7 (03:12→23:18)
[2017-10-03 04:53] LABS: BASOPHILS # (AUTO) 0.1 (0.0-0.1); BASOPHILS % 0.6 % (0.0-1.0); EOSINOPHILS # (AUTO) 0.2 (0.0-0.4); EOSINOPHILS % 1.4 % (0.0-6.0); HEMATOCRIT 33.7 % (34.2-44.1); HEMOGLOBIN 11.5 g/dL (12.0-16.0); LYMPHOCYTES # (AUTO) 0.9 (1.0-3.2); LYMPHOCYTES % 8.3 % (18.0-39.1); MEAN CORPUSCULAR HEMOGLOBIN 28.8 pg (28-32); MEAN CORPUSCULAR HGB CONC 34.1 g/dL (31-35); MEAN CORPUSCULAR VOLUME 84.3 fL (81-99); MONOCYTES # (AUTO) 0.8 (0.2-0.8); MONOCYTES % 7.7 % (4.4-11.3); NEUTROPHILS # (AUTO) 8.8 (2.1-6.9); NEUTROPHILS % 81.4 % (38.7-80.0); PLATELET COUNT 330 x10e3/uL (140-360); RED CELL DISTRIBUTION WIDTH 17.1 % (11.7-14.4)
[2017-10-03 05:13] LABS: ALBUMIN 1.8 g/dL (3.5-5.0); ALBUMIN/GLOBULIN RATIO 0.5 (0.8-2.0); ANION GAP 15.4 mmol/L (8-16); CALCIUM 7.2 mg/dL (8.4-10.2); POTASSIUM 3.4 mmol/L (3.5-5.1)
[2017-10-03] MEDS ORDERED: POTASSIUM CHLORIDE 10MEQ/100ML 100 ML IV ONE (05:45)
[2017-10-03] MEDS ORDERED: INSULIN REGULAR, HUMAN 100 UNIT/1 ML 3ML VIAL SQ SCH (06:00)
[2017-10-03] MEDS: INSULIN REGULAR, HUMAN 100 UNIT/1 ML 3ML VIAL SQ SCH ×4 (06:03→23:18)
[2017-10-03 07:31] LABS: EOSINOPHILS % (MANUAL) 2 % (0-7); LYMPHOCYTES % (MANUAL) 2 % (19-48); MONOCYTES % (MANUAL) 3 % (3.4-9.0); NEUTROPHILS % (MANUAL) 91 % (40-74)
[2017-10-03 07:32] LABS: PLATELET ESTIMATE ADEQUATE; PLATELET MORPHOLOGY COMMENT NORMAL; RBC MORPHOLOGY COMMENT NORMAL
[2017-10-03] MEDS: SODIUM BICARBONATE 8.4% SYRING 150 ML in DEXTROSE 5% 1,000 ML IV SCH ×2 (12:04→19:00)
[2017-10-03] MEDS: DEXTROSE 50% SYRINGE 50 ML IV PRN (12:05)
[2017-10-03] MEDS ORDERED: KETAMINE HCL INJ 50 MG/ML 10 ML VIAL ONE (15:18)
[2017-10-03] MEDS ORDERED: SODIUM BICARBONATE 8.4% SYRING 150 ML in DEXTROSE 5% 1,000 ML IV SCH (20:00)
[2017-10-04] VITALS (34 sets, daily range): BP systolic 114–190; BP diastolic 48–80
[2017-10-04] MEDS: PANTOPRAZOL 40MG/SOD CHL 0.9% 50 ML IV SCH ×4 (04:22→20:17)
[2017-10-04 04:36] LABS: BASOPHILS # (AUTO) 0.1 (0.0-0.1); BASOPHILS % 0.6 % (0.0-1.0); EOSINOPHILS # (AUTO) 0.2 (0.0-0.4); HEMATOCRIT 32.9 % (34.2-44.1); HEMOGLOBIN 10.9 g/dL (12.0-16.0); LYMPHOCYTES % 10.1 % (18.0-39.1); MEAN CORPUSCULAR HEMOGLOBIN 28.7 pg (28-32); MEAN CORPUSCULAR HGB CONC 33.1 g/dL (31-35); MEAN CORPUSCULAR VOLUME 86.6 fL (81-99); MONOCYTES # (AUTO) 0.7 (0.2-0.8); MONOCYTES % 7.5 % (4.4-11.3); NEUTROPHILS # (AUTO) 7.6 (2.1-6.9); NEUTROPHILS % 79.3 % (38.7-80.0); PLATELET COUNT 312 x10e3/uL (140-360); RED CELL DISTRIBUTION WIDTH 16.7 % (11.7-14.4)
[2017-10-04 05:02] LABS: ALBUMIN 1.8 g/dL (3.5-5.0); ALBUMIN/GLOBULIN RATIO 0.6 (0.8-2.0); ANION GAP 14.8 mmol/L (8-16); CALCIUM 7.4 mg/dL (8.4-10.2); CREATININE, SERUM 3.18 mg/dL (0.57-1.11); PHOSPHORUS 3.2 MG/DL (2.3-4.7)
[2017-10-04 05:19] LABS: POTASSIUM 2.8 mmol/L (3.5-5.1)
[2017-10-04] MEDS: INSULIN REGULAR, HUMAN 100 UNIT/1 ML 3ML VIAL SQ SCH ×4 (05:37→23:09)
[2017-10-04] MEDS ORDERED: POTASSIUM CHLORIDE 20 MEQ TAB CR PO STA (06:10)
[2017-10-04] MEDS ORDERED: POTASSIUM CHLORIDE 20MEQ/100ML 200 ML IV ONE (06:15)
[2017-10-04] MEDS ORDERED: DEXTROSE 5%/0.45% SOD CHL 1,000 ML IV SCH (06:15)
[2017-10-04] MEDS ORDERED: DEXTROSE 5% 1,000 ML IV ONE (09:45)
[2017-10-04] MEDS ORDERED: CLONIDINE HCL 0.1 MG/24 HR 1 EA PATCH TD SCH (10:30)
[2017-10-04] MEDS ORDERED: POTASSIUM CHLORIDE 20 MEQ TAB CR PO NR (10:30)
[2017-10-04] MEDS: TRIMETHOPRIM/SULFAMETHOXAZOLE 160-800 MG TAB PO SCH ×2 (11:00→22:09)
[2017-10-04] MEDS ORDERED: LEVETIRACETAM 500 MG TAB PO SCH (11:00)
[2017-10-04] MEDS: METOPROLOL TARTRATE 50 MG TAB PO SCH (11:00)
--- NOTE | 2017-10-04 15:49 | Diagnostic Imaging Report ---
EXAM: Renal Ultrasound INDICATION: \S\jina no doppler COMPARISON: Renal ultrasound dated 07/18/2017 TECHNIQUE: Transverse and longitudinal images of the kidneys and bladder were obtained. FINDINGS: Limited study. Patient could not turn or move arms due to stroke. Right Kidney: Size: 9.2 cm Echogenicity: Increased Parenchymal thickness: Normal Collecting system: Mild hydronephrosis Stones: None Cyst/Mass: 1.9 x 2.1 x 1.7 cm midpole cyst. Left Kidney: Size: 8.8 cm Echogenicity: Increased Parenchymal thickness: Normal Collecting system: Mild hydronephrosis Stones: None Cyst/Mass: None Bladder: Collapsed by a Price catheter in place. IMPRESSION: Increased renal cortical echogenicity, suggestive of medical renal disease. Mild bilateral hydronephrosis. Signed by: Dr. Jayro Morrison MD on 10/04/2017 3:46 PM
[2017-10-04] MEDS ORDERED: LEVETIRACETAM 500MG/5ML VIAL 500 MG in SODIUM CHLORIDE 0.9% 100 ML 100 ML IV STA ×2 (16:08→16:23)
[2017-10-04] MEDS: LEVETIRACETAM 500MG/5ML VIAL 750 MG in SODIUM CHLORIDE 0.9% 100 ML 100 ML IV SCH (17:51)
--- NOTE | 2017-10-04 20:08 | Consultation ---
DATE OF CONSULTATION: October 04, 2017 NEUROLOGY CONSULTATION HISTORY OF PRESENT ILLNESS: Unfortunately, the patient is postictal and unable to provide medical history. Her family is unavailable at present. Therefore, the history is obtained from review of the electronic medical records as well as the ICU staff. On the afternoon of October 04, 2017, between 1545 and 1550, the patient was witnessed to have a generalized seizure, which is described as follows: The patient reportedly yelled out. Her sons, who were at her bedside, alerted medical staff that something was wrong. Two nurses immediately came into the patient's room and witnessed the patient having a generalized seizure. According to one nurse, the patient's eyes rolled back in her head. There was stiffening of the arms in a flexed position and the legs in an extended position followed by shaking of all extremities. The nurse does report foaming saliva. The patient did bite her tongue, as evidenced by an abrasion over the left side of the tongue as well as small amounts of dried blood in the mouth. There was no bladder incontinence. There was bowel incontinence. According to the nurses, this activity lasted for approximately 2 minutes. During this time, the patient was turned on her right side to prevent aspiration. After the seizure concluded, the patient was postictal. Ms. Brumfield does have a previous history of 3 strokes, with 2 strokes affecting the left and right frontal, cortical and subcortical regions. She has had seizures for at least 3 years and is treated with Keppra 750 mg by mouth twice daily. When taking this medication, the patient's seizures are generally well controlled. Unfortunately, when the patient was admitted to [facility] on October 01, 2017, with a gastrointestinal bleed, her antiepileptic medications were not continued. Therefore, the patient went approximately 3 days, possibly longer, without her antiseizure medication. REVIEW OF SYSTEMS: Unable to assess as the patient is postictal. PAST MEDICAL HISTORY: Hypertension, hyperlipidemia, diabetes mellitus, end-stage renal disease not on hemodialysis, multiple prior strokes with residual left facial and arm weakness. PAST SURGICAL HISTORY: Tonsillectomy, appendectomy, section. PAST HOSPITALIZATIONS: Surgeries/procedures as listed, strokes, renal dysfunction with most recent hospitalization being in June 2017. FAMILY MEDICAL HISTORY: The patient's paternal and maternal grandparents are . Their medical histories are unknown. The patient's father is from coronary artery disease. Her mother is from complications of diabetes mellitus. Ms. Brumfield has or had 2 brothers and 1 sister with diabetes mellitus. SOCIAL HISTORY: Ms. Brumfield is . She lives with one of her sons. While he is at work during the day, she does have a provider with her. There is no reported tobacco, alcohol, or recreational drug use. HOME MEDICATIONS 1. Aspirin 81 mg by mouth daily. 2. Clonidine 1 patch transdermally daily. 3. Plavix 75 mg by mouth daily. 4. Levemir 20 units subcutaneously daily. 5. Keppra 750 mg by mouth twice daily. 6. Metoprolol 50 mg by mouth daily. 7. Simvastatin 40 mg by mouth at bedtime daily. 8. Hemocyte 160 mg by mouth twice daily. ALLERGIES: CIPROFLOXACIN. NO KNOWN FOOD ALLERGIES. NO KNOWN ALLERGIES TO LATEX. NO KNOWN ALLERGIES TO IODINE OR OTHER CONTRAST MATERIALS. PHYSICAL EXAMINATION VITAL SIGNS: Height 60 inches, weight 103 pounds, BMI 20.8 kg per meter squared. Blood pressure 166/67 mmHg, pulse 80 beats per minute, respiratory rate 18 breaths per minute. Oxygen saturation 97% on room air. GENERAL: The patient is awake and alert, does not appear distressed. HEENT: Normocephalic and atraumatic. Pupils are sluggishly reactive to light. Moist mucous membranes. NECK: Supple. No appreciable thyromegaly. No appreciable carotid bruits. CARDIOVASCULAR: S1, S2, regular rate and rhythm. No murmurs, rubs, or gallops. RESPIRATORY: Clear to auscultation bilaterally. No wheezes, rhonchi or rales. EXTREMITIES: The skin is warm and dry. No clubbing, cyanosis, or edema. The posterior tibial and dorsalis pedis pulses are 1+ and symmetric. SKIN: No rashes or lesions. NEUROLOGIC EXAMINATION MEMORY/ATTENTION: The patient is awake, alert, oriented to person only (postictal). CRANIAL NERVES: Cranial nerve I: Not tested. Cranial nerves II, III, IV, and : Pupils are sluggishly reactive to light. Extraocular movements are grossly intact. No nystagmus. Cranial nerve V: Sensation to light touch is grossly intact in the bilateral V1 through V3 distributions. Strength of the temporalis and masseter muscles is within normal limits. Cranial nerve VII: The face is asymmetric on the left as are all facial movements. There is mild central weakness over the muscles of the left side of the face. Cranial nerve VIII: Hearing is grossly intact to finger rub bilaterally. Cranial nerves IX and X: The soft palate elevates equally and symmetrically. Cranial nerve XI: Normal strength of the bilateral sternocleidomastoid and trapezius muscles. Cranial nerve XII: The tongue protrudes midline and moves symmetrically from side to side. There appears to be a small laceration on the left side of the tongue. STRENGTH: Bulk is diminished, especially in the legs. There is no movement and decreased tone in the left arm. The right hand auto body man is approximately 4/5. Both legs moved to noxious stimuli, right greater than left. Muscle tone is diminished in the legs. DTRs: Deep tendon reflexes are 2+ over the right triceps, biceps, brachioradialis, and bilateral patellas. Deep tendon reflexes are 3+ over the left triceps, biceps, and brachioradialis. Deep tendon reflexes are absent and symmetric at the Achilles. Plantar responses are mute on the left, flexor on the right. SENSATION: As per motor exam. CEREBELLAR: Unable to assess secondary to the patient being postictal. GAIT: Deferred. SPEECH: Spontaneous speech is very limited. Speech is mildly dysarthric. Cannot adequately assess for aphasia or repetition. INVOLUNTARY MOVEMENTS: None. PRONATOR DRIFT: As per motor exam. LABORATORY DATA: Sodium 146, potassium 2.8, chloride 89, carbon dioxide 45, anion gap 14.8, BUN 59, creatinine 3.18, estimated GFR 14. YTR-nv-ztzhohwuwf ratio 19. Glucose 153, calcium 7.4, phosphorus 3.2, magnesium 2.0. Total bilirubin 0.4, AST 12, ALT 9, alkaline phosphatase 54, total protein 5.0, albumin 1.8, globulin 3.2, mkuehyx-wc-bzisphki ratio 0.6. The CBC with differential and platelets reveals a white blood cell count of 9.59 with 79.3% neutrophils, 10.1% lymphocytes, 7.5% monocytes, 2.0% eosinophils, and 0.6% basophils. The hemoglobin and hematocrit are 10.9 and 32.9, respectively. Platelet count is 312. On October 01, 2017, PTT 14.6, INR 1.23, PTT 39.6. A urinalysis collected on October 01, 2017, reveals the urine to be cloudy with 1+ protein, 2+ blood, 2+ leukocyte esterase, 11-20 white blood cells, and moderate urine bacteria. Stool occult blood was positive on October 01, 2017. Hepatitis B surface antigen negative. Hepatitis B surface antibody quantitative less than 3.1. Hepatitis B core total antibody negative. DIAGNOSTIC STUDIES 1. Chest x-ray 10/01/2017: No acute thoracic abnormality. 2. CT of the brain without contrast, 10/01/2017: On my review, there is no evidence of recent large territorial ischemia, hemorrhage, mass, or mass effect. Prior vascular insults are seen in the bilateral frontal regions with cortical and subcortical involvement. There is a remote lacunar infarct in the genu of the right internal capsule as well. There is diffuse cerebral atrophy, more than is expected for age. There are findings compatible with mild to moderate chronic small vessel ischemic disease. 3. Renal ultrasound, 10/04/2017: Increased renal cortical echogenicity, suggestive of medical renal disease. Mild bilateral hydronephrosis. Ms. Brumfield is a 77-year-old woman with past medical history significant for 3 prior strokes, 2 with cortical involvement and secondary seizure disorder, admitted to [facility] on October 01, 2017, with a gastrointestinal bleed. On the afternoon of October 04, 2017, patient was witnessed to have a generalized tonic-clonic seizure. Ms. Brumfield has undergone a thorough neurological examination with findings detailed above. Her laboratory data and other diagnostic studies have been reviewed and are documented above. As stated in the history of present illness, the patient's home medication of Keppra 750 mg by mouth twice daily was not continued upon admission to [facility]. Therefore, the patient went approximately 3 days, possibly longer, without her antiepileptic medication. This resulted in the generalized tonic-clonic seizure which occurred on the afternoon of October 04, 2017. RECOMMENDATIONS 1. Ms. Brumfield will be given a loading dose of levetiracetam 10 mg per kg intravenously once. 2. Her home medication of Keppra 750 mg twice daily will be continued. Due to the patient's postictal state, the medication will be given intravenously for the next 24 hours (approximately). On followup evaluation on October 05, 2017, provided the patient is lucid and able to tolerate p.o., Keppra will be changed from intravenous preparation to oral tablet. 3. Monitor for further seizure activity. 4. Defer treatment of the remaining medical comorbidities to the primary and other services following the patient. Thank you for this consultation. I will continue to follow this patient while she remains in the hospital. Time spent: 70 minutes. Job#: [id number] JESUS BECKER
[2017-10-04] MEDS ORDERED: LEVETIRACETAM 500MG/5ML VIAL 750 MG in SODIUM CHLORIDE 0.9% 100 ML 100 ML IV SCH (21:00)
[2017-10-04] MEDS: SIMVASTATIN 40 MG TAB PO SCH (22:09)
[2017-10-05] VITALS (24 sets, daily range): BP systolic 101–156; BP diastolic 31–64
[2017-10-05] MEDS: PANTOPRAZOL 40MG/SOD CHL 0.9% 50 ML IV SCH ×5 (00:28→21:30)
[2017-10-05] MEDS: LEVETIRACETAM 500MG/5ML VIAL 750 MG in SODIUM CHLORIDE 0.9% 100 ML 100 ML IV SCH ×2 (04:17→16:30)
[2017-10-05 05:12] LABS: ALBUMIN 2.1 g/dL (3.5-5.0); ALBUMIN/GLOBULIN RATIO 0.7 (0.8-2.0); ANION GAP 13.9 mmol/L (8-16); CALCIUM 7.8 mg/dL (8.4-10.2); CREATININE, SERUM 3.35 mg/dL (0.57-1.11); MAGNESIUM 2.1 MG/DL (1.3-2.1)
[2017-10-05 05:26] LABS: POTASSIUM 3.9 mmol/L (3.5-5.1)
[2017-10-05 05:40] LABS: PHOSPHORUS 3.3 MG/DL (2.3-4.7)
[2017-10-05] MEDS: INSULIN REGULAR, HUMAN 100 UNIT/1 ML 3ML VIAL SQ SCH ×3 (06:00→17:48)
[2017-10-05] MEDS: TRIMETHOPRIM/SULFAMETHOXAZOLE 160-800 MG TAB PO SCH ×2 (09:00→21:12)
[2017-10-05] MEDS: METOPROLOL TARTRATE 50 MG TAB PO SCH (10:30)
[2017-10-05 18:48] LABS: HEMATOCRIT 32.9 % (34.2-44.1); HEMOGLOBIN 10.4 g/dL (12.0-16.0)
[2017-10-05] MEDS: LEVETIRACETAM 500 MG TAB PO SCH (21:12)
[2017-10-05] MEDS: SIMVASTATIN 40 MG TAB PO SCH (21:12)
[2017-10-06] VITALS (21 sets, daily range): BP systolic 99–131; BP diastolic 37–90
[2017-10-06] MEDS: INSULIN REGULAR, HUMAN 100 UNIT/1 ML 3ML VIAL SQ SCH ×4 (00:03→17:45)
[2017-10-06] MEDS: PANTOPRAZOL 40MG/SOD CHL 0.9% 50 ML IV SCH ×4 (03:21→17:54)
[2017-10-06 04:55] LABS: BASOPHILS % 0.4 % (0.0-1.0); EOSINOPHILS # (AUTO) 0.4 (0.0-0.4); EOSINOPHILS % 3.9 % (0.0-6.0); HEMATOCRIT 31.5 % (34.2-44.1); HEMOGLOBIN 9.9 g/dL (12.0-16.0); LYMPHOCYTES # (AUTO) 1.5 (1.0-3.2); LYMPHOCYTES % 15.9 % (18.0-39.1); MEAN CORPUSCULAR HEMOGLOBIN 28.6 pg (28-32); MEAN CORPUSCULAR HGB CONC 31.4 g/dL (31-35); MONOCYTES # (AUTO) 0.8 (0.2-0.8); MONOCYTES % 8.8 % (4.4-11.3); NEUTROPHILS # (AUTO) 6.6 (2.1-6.9); NEUTROPHILS % 70.5 % (38.7-80.0); PLATELET COUNT 253 x10e3/uL (140-360); RED BLOOD COUNT 3.46 x10e6/uL (3.6-5.1); RED CELL DISTRIBUTION WIDTH 15.9 % (11.7-14.4)
[2017-10-06 05:30] LABS: ANION GAP 14.1 mmol/L (8-16); CALCIUM 7.6 mg/dL (8.4-10.2); CREATININE, SERUM 3.71 mg/dL (0.57-1.11); MAGNESIUM 1.9 MG/DL (1.3-2.1); PHOSPHORUS 3.9 MG/DL (2.3-4.7); POTASSIUM 4.1 mmol/L (3.5-5.1)
[2017-10-06] MEDS: SUCRALFATE 1 GM TAB PO SCH ×3 (07:30→16:30)
[2017-10-06] MEDS: LEVETIRACETAM 500 MG TAB PO SCH ×2 (08:51→20:52)
[2017-10-06] MEDS: TRIMETHOPRIM/SULFAMETHOXAZOLE 160-800 MG TAB PO SCH ×2 (08:51→20:52)
[2017-10-06] MEDS: METOPROLOL TARTRATE 50 MG TAB PO SCH (09:00)
[2017-10-06] MEDS: SIMVASTATIN 40 MG TAB PO SCH (20:52)
[2017-10-07] VITALS (7 sets, daily range): BP systolic 116–159; BP diastolic 51–65
[2017-10-07] MEDS: PANTOPRAZOL 40MG/SOD CHL 0.9% 50 ML IV SCH ×3 (00:04→07:15)
[2017-10-07 05:22] LABS: HEMATOCRIT 31.2 % (34.2-44.1); HEMOGLOBIN 9.8 g/dL (12.0-16.0)
[2017-10-07] MEDS ORDERED: SODIUM CHLORIDE 0.9% 250ML 250 ML ONE (07:12)
[2017-10-07] MEDS: SUCRALFATE 1 GM TAB PO SCH ×3 (07:30→16:30)
[2017-10-07] MEDS: INSULIN REGULAR, HUMAN 100 UNIT/1 ML 3ML VIAL SQ SCH ×5 (07:58→20:37)
[2017-10-07] MEDS: METOPROLOL TARTRATE 50 MG TAB PO SCH (09:00)
[2017-10-07] MEDS: TRIMETHOPRIM/SULFAMETHOXAZOLE 160-800 MG TAB PO SCH ×2 (09:00→20:37)
[2017-10-07] MEDS: LEVETIRACETAM 500 MG TAB PO SCH ×2 (09:00→20:37)
[2017-10-07] MEDS: SIMVASTATIN 40 MG TAB PO SCH (20:37)
[2017-10-08] VITALS (8 sets, daily range): BP systolic 112–195; BP diastolic 51–86
[2017-10-08 05:02] LABS: BASOPHILS # (AUTO) 0.1 (0.0-0.1); BASOPHILS % 0.7 % (0.0-1.0); EOSINOPHILS # (AUTO) 0.2 (0.0-0.4); EOSINOPHILS % 2.4 % (0.0-6.0); HEMATOCRIT 30.1 % (34.2-44.1); HEMOGLOBIN 9.5 g/dL (12.0-16.0); LYMPHOCYTES # (AUTO) 1.2 (1.0-3.2); LYMPHOCYTES % 13.7 % (18.0-39.1); MEAN CORPUSCULAR HEMOGLOBIN 28.2 pg (28-32); MEAN CORPUSCULAR HGB CONC 31.6 g/dL (31-35); MEAN CORPUSCULAR VOLUME 89.3 fL (81-99); MONOCYTES # (AUTO) 0.6 (0.2-0.8); MONOCYTES % 6.5 % (4.4-11.3); NEUTROPHILS # (AUTO) 6.8 (2.1-6.9); NEUTROPHILS % 75.9 % (38.7-80.0); PLATELET COUNT 228 x10e3/uL (140-360); RED BLOOD COUNT 3.37 x10e6/uL (3.6-5.1); RED CELL DISTRIBUTION WIDTH 15.1 % (11.7-14.4)
[2017-10-08 05:26] LABS: ANION GAP 17.1 mmol/L (8-16); CALCIUM 7.7 mg/dL (8.4-10.2); CREATININE, SERUM 3.95 mg/dL (0.57-1.11); POTASSIUM 4.1 mmol/L (3.5-5.1)
[2017-10-08] MEDS: INSULIN REGULAR, HUMAN 100 UNIT/1 ML 3ML VIAL SQ SCH ×2 (07:30→11:30)
[2017-10-08] MEDS: TRIMETHOPRIM/SULFAMETHOXAZOLE 160-800 MG TAB PO SCH (09:10)
[2017-10-08] MEDS: METOPROLOL TARTRATE 50 MG TAB PO SCH (09:10)
[2017-10-08] MEDS: LEVETIRACETAM 500 MG TAB PO SCH (09:10)
[2017-10-08] MEDS: SUCRALFATE 1 GM TAB PO SCH (09:10)
[2017-10-08] MEDS ORDERED: PANTOPRAZOLE SO40 MG PO (11:04)
--- NOTE | 2017-10-08 12:29 | Discharge Summary ---
HISTORY: Ms. Brumfield is a complex and unfortunate and very elderly 77-year-old woman who was brought to the emergency room on the instructions of Dr. Ricci after he did laboratory studies and found her to be profoundly anemic and with advanced renal failure. HOSPITAL COURSE: Dr. Avendaño was consulted and patient had catheter placed in the femoral vein and had dialysis. She was transfused. She was seen by Dr. Gagnon for GI bleeding and found to have peptic ulcer disease in the duodenum. She was given IV pantoprazole and Carafate. Unfortunately day after admission, she had a seizure as she had not gotten her home Keppra. Patient's electrolytes improved somewhat, but her BUN and creatinine reflected advanced kidney failure. Initially, family and patient refused consideration of dialysis and catheter was removed. Today, her BUN is 74, creatinine 3.95, potassium is 4.1, glucose 132. Hemoglobin 9.5. She was felt to be stable to be discharged, to take pantoprazole in addition to her regular home medications and 3 more days of trimethoprim sulfamethoxazole for urinary tract infection. She will continue her previous home medications including aspirin 81 mg daily, clopidogrel 75 mg daily, her insulin dose Levemir 20 units daily, Keppra 750 mg b.i.d., metoprolol tartrate 50 mg daily, simvastatin 40 mg daily, and Hemocyte twice a day. She will follow up with Dr. Avendaño in 7-10 days for recheck of electrolytes. DISCHARGE DIAGNOSES 1. Advanced renal failure. 2. Gastrointestinal blood loss with peptic ulcer disease. 3. Type 2 adult-onset diabetes. 4. Chronic diagnosis of seizure disorder. 5. History of previous cerebrovascular accident. MADDY MYERS MD Job#: [id number] CAITLYN cc:DR. DELON GAGNON
--- OUTSIDE RECORDS SUMMARY | 2017-11-25 00:49 | XMS REPORT ---
Author Author [facility] Address Unknown Phone Unavailable Care Team Providers Care Log Sorting Supervisor Name Role Phone MADDY MYERS Unavailable Unavailable NIKUNJ CARABALLO Unavailable Unavailable Problems This patient has no known problems. Allergies, Adverse Reactions, Alerts This patient has no known allergies or adverse reactions. Medications This patient has no known medications. Results Test Description Test Time Test Comments Text Results Atomic Results Result Comments US RENAL RETROPERITONEAL COMP 2017-10-04 15:41:00 [place] [address] Patient Name: JOANNA MCLAUGHLIN MR #: [id number] : 1940 Age/Sex: 77/ F Req #: [id number] Adm Physician: MADDY MYERS MD Ordered by: CAMERON OG, MANSOOR OG Report #: [id number] Location: ICU Room/Bed: ICU [facility] Procedure: [id number] US/US RENAL RETROPERITONEAL COMP Exam Date: 10/04/17 Exam Time: 1404 REPORT STATUS: Signed EXAM: Renal Ultrasound INDICATION: COMPARISON: Renal ultrasound dated 07/18/2017 TECHNIQUE: Transverse and longitudinal images of the kidneys and bladder were obtained. FINDINGS: Limited study. Patient could not turn or move arms due to stroke. Right Kidney: Size: 9.2 cm Echogenicity: Increased Parenchymal thickness: Normal Collecting system: Mild hydronephrosis Stones: None Cyst/Mass: 1.9 x 2.1 x 1.7 cm midpole cyst. Left Kidney: Size: 8.8 cm Echogenicity: Increased Parenchymal thickness: Normal Collecting system: Mild hydronephrosis Stones: None Cyst/Mass: None Bladder: Collapsed by a Price catheter in place. IMPRESSION: Increased renal cortical echogenicity, suggestive of medical renal disease. Mild bilateral hydronephrosis. Signed by: Dr. Jayro Garcia MD on 10/04/2017 3:46 PM Dictated By: JAYRO GARCIA MD 45 Transcribed By: ALICJA on 10/04/171545 COPY TO: MANSOOR BARNES CT BRAIN WO 2017-10-01 18:13:00 [place] [address] Patient Name: JOANNA MCLAUGHLIN MR #: [id number] : 1940 Age/Sex: 77/F Req #: [id number] Adm Physician: MADDY MYERS MD Ordered by: CANDIE VILA MD Report #: [id number] Location: [place] [address] Room/Bed: [facility] Procedure: [id number] CT/CT BRAIN WO Exam Date: 12/09 Exam Time: 1740 REPORT STATUS: Signed ADDENDUM #1 Dose modulation, iterative reconstruction , and/or weight based adjustment of the mA/kV was utilized to reduce the radiation dose to as low as reasonably achievable. Signed by: Dr. Isabelle Hernandez M.D. on 10/11/2017 10:00 AM ORIGINAL REPORT EXAMINATION: Head CT HISTORY: Altered mental status COMPARISON: None. TECHNIQUE: Multidetector axial images were obtained without contrast from the foramen magnum to the vertex . The images were reconstructed using brain and bone algorithms. Thin section brain images were reformatted into coronal and sagittal planes. Image quality: Motion/streaking artifact limits the evaluation of the skull base and posterior cranial fossa. FINDINGS: Parenchyma: 1. Cortico-subcortical encephalomalacia in the right superior middle and inferior frontal gyri as well as the left middle and superior frontal gyri. 2. Chronic lacunar infarct in the genu of the right internal capsule with ipsilateral Wallerian degeneration. 3. No mass or hemorrhage. No CT evidence of acute territorial vascular insult. Extra-axial spaces:No abnormal density. No extra-axial fluid collections Brain volume: Generalized volume loss more that what is expected for age. Ventricles: No hydrocephalus or displacement. Arteries: No density suggestive of thrombus. Dural sinuses: No abnormal density. Extra-axial spaces: No abnormal density. Foramen magnum: No mass, Chiari malformation, or basilar invagination. Sella: No obvious mass. Paranasal/mastoid sinuses: Imaged portions unremarkable. Skull/ Scalp: No lytic or blastic lesions. No fractures. IMPRESSION: 1. No acute intracranial hemorrhage or CT evidence of acute cortical infarct. 2. Bilateral frontal cortical infarcts. 3. Generalized brain volume lobes, more than what is expected for age. Signed by: Dr. Isabelle Hernandez M.D. on 11/2017 6:28 PM Dictated By: ISABELLE HERNANDEZ MD 1000 Transcribed By: ALICJA on 10/01/17 1828 COPY TO: CANDIE VILA MD CHEST SINGLE (PORTABLE) 2017-10-01 17:35:00 [place] [address] Patient Name: TERESA MCLAUGHLIN MR #: [id number] : 1940 Age/Sex: 77/F Req #: [id number] Adm Physician: Ordered by: CANDIE VILA MD Report #: [id number] Location: ER Room/Bed: Procedure: [id number] DX/CHEST SINGLE (PORTABLE) Exam Date: 12/09 Exam Time: 1705 REPORT STATUS: Signed EXAMINATION: CHEST SINGLE (PORTABLE) INDICATION: COMPARISON: Chest radiograph 07/17/2017 FINDINGS: AP view TUBES and LINES: None. LUNGS: Lungs are well inflated. Lungs are clear. There is no evidence of pneumonia or pulmonary edema. PLEURA: No pleural effusion or pneumothorax. HEART AND MEDIASTINUM: Aortic arch calcifications. The cardiomediastinal silhouette is unremarkable. BONES AND SOFT TISSUES: No acute osseous lesion. Old left rib fracture. Soft tissues are unremarkable. UPPER ABDOMEN: No free air under the diaphragm. IMPRESSION: No acute thoracic abnormality. Signed by: DR. Fawad Tripp MD on 10/01/2017 5:37 PM Dictated By: FAWAD TRIPP MD 36 Transcribed By: ALICJA on 10/01/171736 COPY TO: CANDIE VILA MD CHEST 2 VIEWS [place] [address] Patient Name: TERESA MCLAUGHLIN MR #: [id number] : 1940 Age/Sex: 77/F Req #: [id number] Adm Physician: NIKUNJ CARABALLO MD Ordered by: CAMERON OG, MANSOOR OG Report #: [id number] Location: [facility] Room/Bed: [facility] 1751 _ Procedure: [id number] DX/CHEST 2 VIEWS Exam Date: 07/17/17 Exam Time: 2004 REPORT STATUS: Signed EXAM: CHEST 2 VIEWS, PA and lateral INDICATION: Weakness, CHF COMPARISON: None FINDINGS: LINES/TUBES: None LUNGS: No consolidations or edema. PLEURA: No effusions or pneumothorax. HEART AND MEDIASTINUM: Normal size and contour. BONES AND SOFT TISSUES: No acute findings. Old posterior left rib fracture. IMPRESSION: No evidence of pulmonary edema. No acute thoracic abnormality. Signed by: Dr. Roxie Pastrana M.D. on 2017 8:13 PM Dictated By: ROXIE PASTRANA MD 12 Transcribed By: ALICJA on 07/17/172012 COPY TO: MANSOOR BARNES CAROTID DOPPLER [place] [address] Patient Name : ETRESA MCLAUGHLIN MR #: [id number] : 1940 Age/Sex: 77/F Adm Physician : NIKUNJ CARABALLO MD Admit Date : Location : [facility] Room/Bed : [facility] _ REPORT: Cardiology Report DATE OF STUDY: July 17, 2017 DOPPLER SCAN OF THE CAROTIDS The left and right carotid arteries were interrogated using the Duplex scanning method. There is moderate plaquing in both carotid bulbs. However, there was no high-grade stenosis. Vertebral flow appears to be normal direction bilaterally. CONCLUSION: 1. No high-grade stenosis bilaterally. 2. Moderate plaquing noted in both carotid bulbs. 3. Mild intimal thickening and plaquing elsewhere bilaterally. 4. Vertebral flow appears to be normal direction bilaterally. Job#: [id number] Signature Date Dictated By: NIKUNJ CARABALLO MD Transcribed By: Smart Panel on 07/18/17 <Electronically signed by NIKUNJ CARABALLO MD><<Signature on File>>07/21/17925 COPY TO: ECHO COMPLETE (ECHOCARDIOGRAM) [place] [address] Patient Name : TERESA MCLAUGHLIN MR #: [id number] : 1940 Age/Sex: 77/F Adm Physician : NIKUNJ CARABALLO MD Admit Date : 07/19/17 Location : [facility] Room/Bed : [facility] REPORT: Cardiology Report DATE OF STUDY: July 17, 2017 ECHOCARDIOGRAM M-MODE: Normal chamber wall dimensions. Normal contractility. Aortic sclerosis. Normal mitral and tricuspid valves. No pericardial effusion. SECTOR SCAN: Normal chamber wall dimensions. Normal contractility. Ejection fraction is approximately 60%. Aortic valve sclerotic. Mitral and tricuspid valves are normal. There is no pericardial effusion. CARDIAC DOPPLER STUDY WITH COLOR: Trace mitral regurgitation. CONCLUSION: 1. Aortic sclerosis without stenosis. 2. Trace mitral regurgitation. 3. Left ventricular ejection fraction is approximately 60%. Job#: [id number] Signature Date Dictated By: NIKUNJ CARABALLO MD Transcribed By: Smart Panel on 07/18/17 <Electronically signed by NIKUNJ CARABALLO MD><<Signature on File>>07/21/17 09 COPY TO: US RENAL RETROPERITONEAL COMP [place] [address] Patient Name: TERESA MCLAUGHLIN MR #: [id number] : 1940 Age/Sex: 77/F Req #: [id number] Adm Physician: NIKUNJ CARABALLO MD Ordered by: MANSOOR BARNES MD, MD Report #: [id number] Location: [facility] Room/Bed: [place] [address] Procedure: [id number] US/US RENAL RETROPERITONEAL COMP Exam Date: 07/17/17 Exam Time: 2355 REPORT STATUS: Signed EXAM: Renal Ultrasound INDICATION: Chronic anemia COMPARISON: None TECHNIQUE: Transverse and longitudinal sonographic images of the kidneys and bladder were obtained. FINDINGS: RIGHT KIDNEY: 9.5 x 4.9 x 5.4 cm, normal cortical thickness. Echogenicity: Normal Hydronephrosis: Mild Calculi: None Cyst/Mass: Simple cyst measuring 2.1 x 1.8 x 1.7 cm LEFT KIDNEY: 8.9 x 6 x 6.7 cm, normal cortical thickness. Echogenicity: Normal Hydronephrosis: Moderate Calculi: None Cyst/Mass: None BLADDER: Decompressed by Price catheter. IMPRESSION: Moderate left and mild right hydronephrosis. Signed by: Dr. Roxie Pastrana M.D. on 07/18/2017 3:28 AM Dictated By: ROXIE PASTRANA MD 7 Transcribed By: ALICJA on 327 COPY TO: MANSOOR BARNES
--- OUTSIDE RECORDS SUMMARY | 2017-11-25 00:49 | XMS REPORT | Summary of Care ---
Author Author [facility] Organization [facility] Address Unknown Phone Unavailable Encounter LAURITA Abernathy(LISETTE) [id number] Date(s): 11/30/16 - 12/03/16 [facility] [id number] [place] [address]- Discharge Disposition: Home or Self Care Attending Physician: Guzman eRad MD Admitting Physician: Guzman Read MD Vital Signs 1 2 3 Most recent to oldest [Reference Range]: 149.86 cm (12/01/16 4:31 AM) 165.1 cm (11/30/16 9:17 PM) Height 98.2 DegF (12/03/16 3:30 PM) 98.3 DegF (12/03/16 11:12 AM) 98.4 DegF (12/03/16 8:00 AM) Temperature Oral [96.4-99.1 DegF] 159/71 mmHg *HI* (12/03/16 3:30 PM) 163/73 mmHg *HI* (12/03/16 11:12 AM) 157/77 mmHg *HI* (12/03/16 8:00 AM) Blood Pressure [90-140/60-90 mmHg] 18 BRMIN (12/03/16 3:30 PM) 18 BRMIN (12/03/16 11:12 AM) 18 BRMIN (12/03/16 8:00 AM) Respiratory Rate [14-20 BRMIN] 63 bpm (12/03/16 3:30 PM) 65 bpm (12/03/16 11:12 AM) 61 bpm (12/03/16 8:00 AM) Peripheral Pulse Rate [60-100 bpm] 49.318 kg (12/01/16 4:31 AM) 68.182 kg (11/30/16 9:17 PM) Weight 21.96 m2 (12/01/16 4:31 AM) 25.01 m2 (11/30/16 9:17 PM) Body Mass Index Problem List Condition Effective Dates Status Health Status Informant Stroke(Confirmed)1 Active Diabetes Active mellitus(Confirmed) High Active cholesterol(Confirme d) Hypertension(Confirm Active ed) Seizure(Confirmed) 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 (Same as: Tylenol) Start Date: 12/01/16 Stop Date: 12/03/16 Status: Discontinued amLODIPine 5 mg, 1 tab, Route: PO, Drug form: TAB, Daily, Dosing Weight 49.318, kg, Priority: NOW, Start date: 12/02/16 13:48:00 CDT, Duration: 30 day, Stop date: 01/01/17 9:00:00 MEDICAL CHARGE ENTRY SPECIALIST Notes: (Same as: Norvasc) Start Date: 12/02/16 Stop Date: 12/03/16 Status: Discontinued amLODIPine 5 mg oral tablet 5 mg=1 tab, PO, Daily, HOLD IF SBP<110, # 30 tab, 0 Refill(s), Pharmacy: [facility] [id number] Start Date: 12/03/16 Stop Date: 01/02/17 Status: Ordered aspirin 81 mg tablet, enteric coated 81 mg=1 tab, PO, Daily, # 90 tab, 3 Refill(s) Start Date: 12/01/16 Status: Ordered aspirin 81 mg tablet, enteric coated 81 mg, 1 tab, Route: PO, Drug form: ECTAB, Daily, Dosing Weight 49.318, kg, Start date: 12/01/16 12:25:00 CDT, Duration: 30 day, Stop date: 12/31/16 9:00: 00 MEDICAL CHARGE ENTRY SPECIALIST Notes: Do not crush or chew.(Same As: Ecotrin) Start Date: 12/01/16 Stop Date: 12/03/16 Status: Discontinued Caltrate 600 + D 1 tab, PO, Daily, 0 Refill(s) Start Date: 12/01/16 Status: Ordered Ceftin 500 mg oral tablet 500 mg=1 tab, PO, BID, X 5 day, # 10 tab, 0 Refill(s), Pharmacy: [facility] [id number] Start Date: 12/03/16 Stop Date: 12/08/16 Status: Ordered Centrum Silver Women's 1 tab, PO, Daily, 0 Refill(s) Start Date: 12/01/16 Status: Ordered cloNIDine 0.1 mg oral tablet 0.1 mg, 1 tab, Route: PO, Drug form: TAB, Q4H, Dosing Weight 49.318, kg, PRN Hypertension, Start date: 12/01/16 11:45:00 CDT, Duration: 30 day, Stop date: 11:44:00 MEDICAL CHARGE ENTRY SPECIALIST Notes: (Same As: Catapres) Start Date: 12/01/16 Stop Date: 12/03/16 Status: Discontinued cloNIDine 0.1 mg oral tablet 0.1 mg=1 tab, PO, Q8H, PRN For SBP > 170, 0 Refill(s) Start Date: 12/01/16 Status: Ordered clopidogrel 75 mg, 1 tab, Route: PO, Drug form: TAB, Daily, Dosing Weight 49.318, kg, Start date: 12/02/16 9:00:00 CDT, Duration: 30 day, Stop date: 12/31/16 9:00:00 MEDICAL CHARGE ENTRY SPECIALIST Notes: (Same As: Plavix) Start Date: 12/02/16 Stop Date: 12/03/16 Status: Discontinued clopidogrel 75 mg oral tablet 75 mg=1 tab, PO, Daily, # 90 tab, 0 Refill(s) Start Date: 12/01/16 Status: Ordered Dextrose 50% Syringe 25 gm, 50 mL, Route: IVP, Drug Form: INJ, Dosing Weight 49.318, kg, PRN, PRN Blood Glucose Results, Start date: 12/01/16 12:38:00 CDT, Duration: 30 day, Stop date: 12/31/16 11:37:00 MEDICAL CHARGE ENTRY SPECIALIST Start Date: 12/01/16 Stop Date: 12/03/16 Status: Discontinued Dextrose 50% Syringe 12.5 gm, 25 mL, Route: IVP, Drug Form: INJ, Dosing Weight 49.318, kg, PRN, PRN Blood Glucose Results, Start date: 12/01/16 12:38:00 CDT, Duration: 30 day, Stop date: 12/31/16 11:37:00 MEDICAL CHARGE ENTRY SPECIALIST Start Date: 12/01/16 Stop Date: 12/03/16 Status: Discontinued Florastor 250 mg oral capsule 250 mg=1 cap, PO, BID, X 5 day, # 10 cap, 0 Refill(s), Pharmacy: [facility] [id number] Start Date: 12/03/16 Stop Date: 12/08/16 Status: Ordered glucagon 1 mg, Route: IM, Drug form: PDR/INJ, PRN, Dosing Weight 49.318, kg, PRN Blood Glucose Results, Start date: 12/01/16 12:38:00 CDT, Duration: 30 day, Stop date : 12/31/16 11:37:00 MEDICAL CHARGE ENTRY SPECIALIST Start Date: 12/01/16 Stop Date: 12/03/16 Status: Discontinued hydrALAZINE 5 mg, 0.25 mL, Route: IV, Drug form: INJ, Q6H, Dosing Weight 49.318, kg, PRN Hypertension, Start date: 12/02/16 13:49:00 CDT, Duration: 7 day, Stop date: 13:48:00 CDT Notes: (Same as: Apresoline)Push over 5 minutes Start Date: 12/02/16 Stop Date: 12/03/16 Status: Discontinued influenza virus vaccine, inactivated 0.5 mL, Route: IM, Drug Form: SUSP, Daily, Start date: 12/01/16 9:00:00 CDT, Duration: 1 doses or times, Stop date: 12/01/16 9:00:00 CDT Notes: (Same as: Fluzone Quadrivalent, Fluarix Quadrivalent)For 3 years of age and older (0.5 mL IM)Shake well before use Start Date: 12/01/16 Stop Date: 12/01/16 Status: Completed insulin lispro 1 unit, 0.01 mL, Route: SUB-Q, Drug form: SOLN, Bedtime, Dosing Weight 49.318, kg, PRN Blood Glucose Results, Start date: 12/01/16 12:38:00 CDT, Duration: 30 day, Stop date: 12/31/16 12:37:00 MEDICAL CHARGE ENTRY SPECIALIST Notes: Roll in palms of hands gently; Do not shake `vigorously. (Same as: Humalog )"Single Patient Use Only "WASTE: F/P - Black; E - Municipal Trash Bin Stable for 28 days at room temperature.Expires in days from Date Start Date: 12/01/16 Stop Date: 12/03/16 Status: Discontinued insulin lispro 4 unit, 0.04 mL, Route: SUB-Q, Drug form: SOLN, Bedtime, Dosing Weight 49.318, kg, PRN Blood Glucose Results, Start date: 12/01/16 12:38:00 CDT, Duration: 30 day, Stop date: 12/31/16 12:37:00 MEDICAL CHARGE ENTRY SPECIALIST Notes: Roll in palms of hands gently; Do not shake `vigorously. (Same as: Humalog )"Single Patient Use Only "WASTE: F/P - Black; E - Municipal Trash Bin Stable for 28 days at room temperature.Expires in days from Date Start Date: 12/01/16 Stop Date: 12/03/16 Status: Discontinued insulin lispro 2 unit, 0.02 mL, Route: SUB-Q, Drug form: SOLN, Bedtime, Dosing Weight 49.318, kg, PRN Blood Glucose Results, Start date: 12/01/16 12:38:00 CDT, Duration: 30 day, Stop date: 12/31/16 12:37:00 MEDICAL CHARGE ENTRY SPECIALIST Notes: Roll in palms of hands gently; Do not shake `vigorously. (Same as: Humalog )"Single Patient Use Only "WASTE: F/P - Black; E - Municipal Trash Bin Stable for 28 days at room temperature.Expires in days from Date Start Date: 12/01/16 Stop Date: 12/03/16 Status: Discontinued insulin lispro 3 unit, 0.03 mL, Route: SUB-Q, Drug form: SOLN, Bedtime, Dosing Weight 49.318, kg, PRN Blood Glucose Results, Start date: 12/01/16 12:38:00 CDT, Duration: 30 day, Stop date: 12/31/16 12:37:00 MEDICAL CHARGE ENTRY SPECIALIST Notes: Roll in palms of hands gently; Do not shake `vigorously. (Same as: Humalog )"Single Patient Use Only "WASTE: F/P - Black; E - Municipal Trash Bin Stable for 28 days at room temperature.Expires in days from Date Start Date: 12/01/16 Stop Date: 12/03/16 Status: Discontinued insulin lispro 2 unit, 0.02 mL, Route: SUB-Q, Drug form: SOLN, TID-Before Meals, Dosing Weight 49.318, kg, PRN Blood Glucose Results, Start date: 12/01/16 12:38:00 CDT, Duration: 30 day, Stop date: 12/31/16 12:37:00 MEDICAL CHARGE ENTRY SPECIALIST Notes: Roll in palms of hands gently; Do not shake `vigorously. (Same as: Humalog )"Single Patient Use Only "WASTE: F/P - Black; E - Municipal Trash Bin Stable for 28 days at room temperature.Expires in days from Date Start Date: 12/01/16 Stop Date: 12/03/16 Status: Discontinued insulin lispro 4 unit, 0.04 mL, Route: SUB-Q, Drug form: SOLN, TID-Before Meals, Dosing Weight 49.318, kg, PRN Blood Glucose Results, Start date: 12/01/16 12:38:00 CDT, Duration: 30 day, Stop date: 12/31/16 12:37:00 MEDICAL CHARGE ENTRY SPECIALIST Notes: Roll in palms of hands gently; Do not shake `vigorously. (Same as: Humalog )"Single Patient Use Only "WASTE: F/P - Black; E - Municipal Trash Bin Stable for 28 days at room temperature.Expires in days from Date Start Date: 12/01/16 Stop Date: 12/03/16 Status: Discontinued insulin lispro 5 unit, 0.05 mL, Route: SUB-Q, Drug form: SOLN, TID-Before Meals, Dosing Weight 49.318, kg, PRN Blood Glucose Results, Start date: 12/01/16 12:38:00 CDT, Duration: 30 day, Stop date: 12/31/16 12:37:00 MEDICAL CHARGE ENTRY SPECIALIST Notes: Roll in palms of hands gently; Do not shake `vigorously. (Same as: Humalog )"Single Patient Use Only "WASTE: F/P - Black; E - Municipal Trash Bin Stable for 28 days at room temperature.Expires in days from Date Start Date: 12/01/16 Stop Date: 12/03/16 Status: Discontinued insulin lispro 3 unit, 0.03 mL, Route: SUB-Q, Drug form: SOLN, TID-Before Meals, Dosing Weight 49.318, kg, PRN Blood Glucose Results, Start date: 12/01/16 12:38:00 CDT, Duration: 30 day, Stop date: 12/31/16 12:37:00 MEDICAL CHARGE ENTRY SPECIALIST Notes: Roll in palms of hands gently; Do not shake `vigorously. (Same as: Humalog )"Single Patient Use Only "WASTE: F/P - Black; E - Municipal Trash Bin Stable for 28 days at room temperature.Expires in days from Date Start Date: 12/01/16 Stop Date: 12/03/16 Status: Discontinued insulin lispro 1 unit, 0.01 mL, Route: SUB-Q, Drug form: SOLN, TID-Before Meals, Dosing Weight 49.318, kg, PRN Blood Glucose Results, Start date: 12/01/16 12:38:00 CDT, Duration: 30 day, Stop date: 12/31/16 12:37:00 MEDICAL CHARGE ENTRY SPECIALIST Notes: Roll in palms of hands gently; Do not shake `vigorously. (Same as: Humalog )"Single Patient Use Only "WASTE: F/P - Black; E - Municipal Trash Bin Stable for 28 days at room temperature.Expires in days from Date Start Date: 12/01/16 Stop Date: 12/03/16 Status: Discontinued Lantus 100 units/mL 20 unit, SUB-Q, Daily, # 10 mL, 0 Refill(s) Start Date: 12/01/16 Status: Ordered Lantus 100 units/mL 20 unit, 0.2 mL, Route: SUB-Q, Drug form: SOLN, Daily, Dosing Weight 49.318, kg , Start date: 12/02/16 9:00:00 CDT, Duration: 30 day, Stop date: 12/31/16 9:00: 00 MEDICAL CHARGE ENTRY SPECIALIST Notes: (Same as: Lantus)Do not hold insulin without contacting prescriberWASTE: F/P - Black; E - Municipal Trash Bin "single patient use only" Start Date: 12/02/16 Stop Date: 12/03/16 Status: Discontinued levETIRAcetam 1,500 mg, 6 tab, Route: PO, Drug form: TAB, Q12H, Dosing Weight 49.318, kg, Start date: 12/01/16 21:00:00 CDT, Duration: 30 day, Stop date: 12/31/16 9:00: 00 MEDICAL CHARGE ENTRY SPECIALIST Notes: (Same as:Keppra) Start Date: 12/01/16 Stop Date: 12/03/16 Status: Discontinued levETIRAcetam 750 mg oral tablet 1,500 mg=2 tab, PO, Q12H, # 360 tab, 0 Refill(s) Start Date: 12/01/16 Status: Ordered metFORMIN 500 mg, PO, BID, 0 Refill(s) Start Date: 12/01/16 Status: Ordered metoprolol extended release 75 mg, 3 tab, Route: PO, Drug form: ERTAB, Daily, Start date: 12/02/16 9:00:00 CDT, Duration: 30 day, Stop date: 12/31/16 9:00:00 MEDICAL CHARGE ENTRY SPECIALIST Notes: (Same as: Toprol XL) Do Not Crush Start Date: 12/02/16 Stop Date: 12/03/16 Status: Discontinued metoprolol tartrate 75 mg oral tablet 75 mg=1 tab, PO, Daily, 0 Refill(s) Start Date: 12/01/16 Status: Ordered ondansetron 4 mg, 2 mL, Route: IVP, Drug form: INJ, Q6H, Dosing Weight 68.182, kg, PRN Nausea & Vomiting, Start date: 12/01/16 3:11:00 CDT, Duration: 30 day, Stop date : 12/31/16 3:10:00 MEDICAL CHARGE ENTRY SPECIALIST Notes: (Same as: Murphy) MEDICATION WASTE Product Size: 4 mgProduct Wasted: ___ mg Start Date: 12/01/16 Stop Date: 12/03/16 Status: Discontinued pneumococcal 13-valent vaccine 0.5 mL, Route: IM, Drug Form: INJ, Daily, Start date: 12/01/16 11:45:00 CDT, Duration: 1 doses or times, Stop date: 12/01/16 11:45:00 CDT Notes: Shake well prior to use (Same as: Real Orr) Start Date: 12/01/16 Stop Date: 12/01/16 Status: Completed pneumococcal 13-valent vaccine 0.5 mL, Route: IM, Drug Form: INJ, Daily, Start date: 12/02/16 10:00:00 CDT, Duration: 1 doses or times, Stop date: 12/02/16 10:00:00 CDT Notes: Shake well prior to use (Same as: Real Orr) Start Date: 12/02/16 Stop Date: 12/02/16 Status: Completed pneumococcal 13-valent vaccine 0.5 mL, Route: IM, Drug Form: INJ, Daily, Start date: 12/01/16 9:00:00 CDT, Duration: 1 doses or times, Stop date: 12/01/16 9:00:00 CDT Notes: Shake well prior to use (Same as: Real Orr) Start Date: 12/01/16 Stop Date: 12/01/16 Status: Deleted Rocephin 1 gm, Route: IVPB, Drug form: PDR/INJ, ONCE, Dosing Weight 68.182, kg, Priority : STAT, Start date: 12/01/16 0:40:00 CDT, Duration: 1 doses or times, Stop date : 12/01/16 0:40:00 CDT, ABX Indication: Urinary Tract Infection Start Date: 12/01/16 Stop Date: 12/01/16 Status: Completed Rocephin + sodium chloride 0.9% INJ 100 mL 1 gm, Route: IV, [id number], Dosing Weight 68.182, kg, Start date: 12/01/16 13:00: 00 CDT, Duration: 30 day, Stop date: 12/31/16 1:00:00 MEDICAL CHARGE ENTRY SPECIALIST, ABX Indication: Urinary Tract Infection Notes: (Same As: Rocephin).Use with 100 mL NS and infuse over 30 min MEDICATION WASTE Product Size: 1000 mgProduct Wasted: ___ mg Start Date: 12/01/16 Stop Date: 12/03/16 Status: Discontinued Saline Flush 0.9% 10 ml, Route: IVP, Drug Form: INJ, Dosing Weight 68.182, kg, PRN, PRN Line Flush , Start date: 12/01/16 3:11:00 CDT, Duration: 30 day, Stop date: 12/31/16 2:10: 00 MEDICAL CHARGE ENTRY SPECIALIST Notes: (Same as: BD Posiflush) Start Date: 12/01/16 Stop Date: 12/03/16 Status: Discontinued simvastatin 40 mg, 1 tab, Route: PO, Drug form: TAB, Bedtime, Dosing Weight 49.318, kg, Start date: 12/01/16 21:00:00 CDT, Duration: 30 day, Stop date: 12/30/16 21:00: 00 MEDICAL CHARGE ENTRY SPECIALIST Notes: (Same as: Zocor) Start Date: 12/01/16 Stop Date: 12/03/16 Status: Discontinued simvastatin 40 mg oral tablet 40 mg=1 tab, PO, Bedtime, # 90 tab, 1 Refill(s) Start Date: 12/01/16 Status: Ordered sodium chloride 0.45% 1000 ml INJ 1,000 mL 1,000 mL, Rate: 75 ml/hr, Infuse over: 13.3 hr, Route: IV, Dosing Weight 68.182 kg, Total Volume: 1,000, Start date: 12/01/16 3:11:00 CDT, Duration: 30 day, Stop date: 12/31/16 3:10:00 MEDICAL CHARGE ENTRY SPECIALIST Start Date: 12/01/16 Stop Date: 12/02/16 Status: Discontinued Results ELECTROLYTES 1 2 3 Most recent to oldest [Reference Range]: 139 mEq/L (12/02/16 5:56 AM) 137 mEq/L (11/30/16 10:06 PM) Sodium Lvl [135-145 mEq/L] 3.8 mEq/L (12/02/16 5:56 AM) 3.8 mEq/L (11/30/16 10:06 PM) Potassium Lvl [3.5-5.1 mEq/L] 107 mEq/L (12/02/16 5:56 AM) 103 mEq/L (11/30/16 10:06 PM) Chloride Lvl [95-109 mEq/L] 21 mEq/L *LOW* (12/02/16 5:56 AM) 25 mEq/L (11/30/16 10:06 PM) CO2 [24-32 mEq/L] 14.8 mEq/L (12/02/16 5:56 AM) 12.8 mEq/L (11/30/16 10:06 PM) AGAP [10.0-20.0 mEq/L] CHEM PANEL 1 2 3 Most recent to oldest [Reference Range]: 1.30 mg/dL (12/02/16 5:56 AM) 1.60 mg/dL *HI* (11/30/16 10:06 PM) Creatinine Lvl [0.50-1.40 mg/dL] 41 mL/min/1.73m2 1 *NA* (12/02/16 5:56 AM) 32 mL/min/1.73m2 2 *NA* (11/30/16 10:06 PM) eGFR 34 mg/dL *HI* (12/02/16 5:56 AM) 40 mg/dL *HI* (11/30/16 10:06 PM) BUN [7-22 mg/dL] 26 *HI* (12/02/16 5:56 AM) 25 (11/30/16 10:06 PM) B/C Ratio [6-25] 262 mg/dL *HI* (12/02/16 5:56 AM) 127 mg/dL *HI* (11/30/16 10:06 PM) Glucose Lvl [70-99 mg/dL] 6.4 g/dL (12/02/16 5:56 AM) 7.1 g/dL (11/30/16 10:06 PM) Total Protein [6.4-8.4 g/dL] 2.3 g/dL *LOW* (12/02/16 5:56 AM) 2.8 g/dL *LOW* (11/30/16 10:06 PM) Albumin Lvl [3.5-5.0 g/dL] 4.1 g/dL (12/02/16 5:56 AM) 4.3 g/dL *HI* (11/30/16 10:06 PM) Globulin [2.7-4.2 g/dL] 0.6 *LOW* (12/02/16 5:56 AM) 0.7 (11/30/16 10:06 PM) A/G Ratio [0.7-1.6] 8.5 mg/dL (12/02/16 5:56 AM) 8.9 mg/dL (11/30/16 10:06 PM) Calcium Lvl [8.5-10.5 mg/dL] 2.4 mg/dL (12/02/16 5:56 AM) Magnesium Lvl [1.8-2.4 mg/dL] 13 unit/L (12/02/16 5:56 AM) 18 unit/L (11/30/16 10:06 PM) ALT [0-65 unit/L] 8 unit/L (12/02/16 5:56 AM) 10 unit/L (11/30/16 10:06 PM) AST [0-37 unit/L] 67 unit/L (12/02/16 5:56 AM) 79 unit/L (11/30/16 10:06 PM) Alk Phos [39-136 unit/L] 0.3 mg/dL (12/02/16 5:56 AM) 0.5 mg/dL (11/30/16 10:06 PM) Bili Total [0.2-1.3 mg/dL] 1.7 mMol/L (12/02/16 8:19 PM) Lactic Acid Lvl [0.5-2.2 mMol/L] 1Result Comment: The eGFR is calculated using the CKD-EPI formula. In most young , healthy individuals the eGFR will be >90 mL/min/1.73m2. The eGFR declines with age. An eGFR of 60-89 may be normal in some populations, particularly the elderly, for whom the CKD-EPI formula has not been extensively validated. Use of the eGFR is not recommended in the following populations: Individuals with unstable creatinine concentrations, including patients and those with serious co-morbid conditions. Patients with extremes in muscle mass or diet. The data above are obtained from the National Kidney Disease Education Program ( NKDEP) which additionally recommends that when the eGFR is used in patients with extremes of body mass index for purposes of drug dosing, the eGFR should be multiplied by the estimated BMI. 2Result Comment: The eGFR is calculated using the CKD-EPI formula. In most young , healthy individuals the eGFR will be >90 mL/min/1.73m2. The eGFR declines with age. An eGFR of 60-89 may be normal in some populations, particularly the elderly, for whom the CKD-EPI formula has not been extensively validated. Use of the eGFR is not recommended in the following populations: Individuals with unstable creatinine concentrations, including patients and those with serious co-morbid conditions. Patients with extremes in muscle mass or diet. The data above are obtained from the National Kidney Disease Education Program ( NKDEP) which additionally recommends that when the eGFR is used in patients with extremes of body mass index for purposes of drug dosing, the eGFR should be multiplied by the estimated BMI. CARDIAC ENZYMES 1 2 3 Most recent to oldest [Reference Range]: 44 unit/L (11/30/16 10:06 PM) Total CK [12-191 unit/L] <0.5 ng/mL (11/30/16 10:06 PM) CK MB [0.5-3.6 ng/mL] <1.1 (11/30/16 10:06 PM) CK MB Index [0.0-2.5] <0.02 ng/mL (11/30/16 10:06 PM) Troponin-I [0.00-0.40 ng/mL] URINE AND STOOL 1 2 3 Most recent to oldest [Reference Range]: Slight *ABN* (12/01/16 12:06 AM) UA Turbidity [Clear] Red *NA* (12/01/16 12:06 AM) UA Color 6.0 (12/01/16 12:06 AM) UA pH [5.0-8.0] 1.006 (12/01/16 12:06 AM) UA Spec Grav [<=1.030] 150 mg/dL *ABN* (12/01/16 12:06 AM) UA Glucose [Negative mg/dL] Small *ABN* (12/01/16 12:06 AM) UA Blood [Negative] Negative mg/dL *NA* (12/01/16 12:06 AM) UA Ketones [Negative mg/dL] 100 mg/dL *ABN* (12/01/16 12:06 AM) UA Protein [Negative mg/dL] <=1.0 mg/dL *NA* (12/01/16 12:06 AM) UA Urobilinogen [0.1-1.0 mg/dL] Negative *NA* (12/01/16 12:06 AM) UA Bili [Negative] Large *ABN* (12/01/16 12:06 AM) UA Leuk Est [Negative] Negative (12/01/16 12:06 AM) UA Nitrite [Negative] 78 /HPF *HI* (12/01/16 12:06 AM) UA WBC [0-5 /HPF] 3 /HPF *HI* (12/01/16 12:06 AM) UA RBC [0-2 /HPF] Many /HPF *ABN* (12/01/16 12:06 AM) UA Bacteria [None Seen /HPF] Occasional /LPF *NA* (12/01/16 12:06 AM) UA Sq Epi [Few /LPF] Few /HPF *ABN* (12/01/16 12:06 AM) UA [place] Yeast [None Seen /HPF] HEMATOLOGY 1 2 3 Most recent to oldest [Reference Range]: 7.4 K/CMM (12/02/16 5:56 AM) 14.9 K/CMM *HI* (11/30/16 10:06 PM) WBC [3.7-10.4 K/CMM] 2.90 M/CMM *LOW* (12/02/16 5:56 AM) 3.31 M/CMM *LOW* (11/30/16 10:06 PM) RBC [4.20-5.40 M/CMM] 7.8 g/dL *LOW* (12/03/16 2:30 PM) 7.3 g/dL *LOW* (12/02/16 5:56 AM) 8.1 g/dL *LOW* (11/30/16 10:06 PM) Hgb [12.0-16.0 g/dL] 23.6 % *LOW* (12/03/16 2:30 PM) 22.1 % *LOW* (12/02/16 5:56 AM) 25.1 % *LOW* (11/30/16 10:06 PM) Hct [36.0-48.0 %] 76.3 fL *LOW* (12/02/16 5:56 AM) 76.0 fL *LOW* (11/30/16 10:06 PM) MCV [80.0-98.0 fL] 25.1 pg *LOW* (12/02/16 5:56 AM) 24.5 pg *LOW* (11/30/16 10:06 PM) MCH [27.0-31.0 pg] 32.9 g/dL (12/02/16 5:56 AM) 32.3 g/dL (11/30/16 10:06 PM) MCHC [32.0-36.0 g/dL] 16.1 % *HI* (12/02/16 5:56 AM) 15.8 % *HI* (11/30/16 10:06 PM) RDW [11.5-14.5 %] 337 K/CMM (12/02/16 5:56 AM) 385 K/CMM (11/30/16 10:06 PM) Platelet [133-450 K/CMM] 7.6 fL (12/02/16 5:56 AM) 7.4 fL (11/30/16 10:06 PM) MPV [7.4-10.4 fL] 72.1 % (12/02/16 5:56 AM) 84.5 % *HI* (11/30/16 10:06 PM) Segs [45.0-75.0 %] 19.2 % *LOW* (12/02/16 5:56 AM) 8.6 % *LOW* (11/30/16 10:06 PM) Lymphocytes [20.0-40.0 %] 6.0 % (12/02/16 5:56 AM) 5.9 % (11/30/16 10:06 PM) Monocytes [2.0-12.0 %] 2.1 % (12/02/16 5:56 AM) 0.6 % (11/30/16 10:06 PM) Eosinophils [0.0-4.0 %] 0.6 % (12/02/16 5:56 AM) 0.4 % (11/30/16 10:06 PM) Basophils [0.0-1.0 %] 5.4 K/CMM (12/02/16 5:56 AM) 12.6 K/CMM *HI* (11/30/16 10:06 PM) Segs-Bands # [1.5-8.1 K/CMM] 1.4 K/CMM (12/02/16 5:56 AM) 1.3 K/CMM (11/30/16 10:06 PM) Lymphocytes # [1.0-5.5 K/CMM] 0.4 K/CMM (12/02/16 5:56 AM) 0.9 K/CMM *HI* (11/30/16 10:06 PM) Monocytes # [0.0-0.8 K/CMM] 0.2 K/CMM (12/02/16 5:56 AM) 0.1 K/CMM (11/30/16 10:06 PM) Eosinophils # [0.0-0.5 K/CMM] 0.1 K/CMM (11/30/16 10:06 PM) Basophils # [0.0-0.2 K/CMM] 1+ *ABN* (12/02/16 5:56 AM) 1+ *ABN* (11/30/16 10:06 PM) [employer] [None Seen] 14.1 seconds (11/30/16 10:06 PM) PT [12.0-14.7 seconds] 1.07 (11/30/16 10:06 PM) INR [0.85-1.17] 37.5 seconds *HI* (11/30/16 10:06 PM) PTT [22.9-35.8 seconds] Immunizations Given and Recorded Vaccine Date Status Refusal Reason influenza virus vaccine, inactivated 12/01/16 Given Not Given Vaccine Date Status Refusal Reason pneumococcal 13-valent vaccine 12/02/16 Not Given Parent Or Guardian Refuses pneumococcal 13-valent vaccine1 12/02/16 Not Given Parent Or Guardian Refuses 1Result Comment: NEEDS TO BE RESCHEDULED PER SON Procedures Procedure Date Related Diagnosis Body Site Appendectomy Caesarean section Hysterectomy Tonsillectomy Social History Social History Type Response Substance Abuse Use: None. Alcohol Never Smoking Status Never smoker; Ready to change: No; Concerns about tobacco use in household: No; Exposure to Tobacco Smoke None; Cigarette Smoking Last 365 Days No; Reg Smoking Cessation Counseling No Assessment and Plan No data available for this section
--- OUTSIDE RECORDS SUMMARY | 2017-11-25 00:49 | XMS REPORT | Continuity of Care Document ---
Author Author [facility] Organization [facility] Address [address] [place] [address] Phone Unavailable Care Team Providers Care Agriculture Mechanic Name Role Phone BERRY PURCELL MD PCP Advance Directives Directive Response Recorded Date/Time Does the patient have an advance directive? No 07/17/17 1:50am If yes, is advance directive on file with [facility]? No 07/17/17 12:53am If not on file with [facility] will patient provide a copy? No 07/17/17 1:50am Do you have a Directive to Physician? No 07/17/17 12:53am Do you have a Medical Power of Child Care Attendant School? No 07/17/17 12:53am Do you have an out of hospital Do Not Resuscitate Order? No 07/17/17 12:53am Do you have any special needs we should be aware of? No 07/17/17 12:53am Do you have a support person here with you today? Yes 07/17/17 12:53am Did patient receive Notice of Privacy Practices? Yes 07/17/17 12:53am Did patient receive patient rights and responsibilities? Yes 07/17/17 12:53am Problems Medical Problem Onset Date Status Chronic anemia Unknown Chronic renal insufficiency Unknown Symptomatic anemia Unknown Medications Current Home Medications Medication Dose Units Route Directions Days Qty Instructions Start Date Clopidogrel Bisulfate (Clopidogrel) 75 Mg Tablet 75 Mg Oral Daily 30 Tab Hemocyte 106 Mg Oral Twice A Day Insulin Detemir (Levemir) 100 Unit/1 Ml Vial 20 Units Subcutaneously Daily Levetiracetam 500 Mg Tablet 750 Mg Oral Twice A Day Metoprolol Tartrate 25 Mg Tablet 25 Mg Oral Twice A Day 90 Days Omeprazole 40 Mg Capsule.dr 40 Mg Oral Daily Simvastatin 40 Mg Tablet 40 Mg Oral Today At 9:00PM 30 Tab Sodium Bicarbonate 650 Mg Tablet 650 Mg Oral Daily 30 Tab 07/20/17 Past Home Medications Medication Directions Ordered Status Amlodipine Besylate 5 Mg Tablet, 5 Mg Oral Daily as needed for Elevated Blood Pressure Discontinued Aspirin (Aspir 81) 81 Mg Tablet.dr, 81 Mg Oral Daily Discontinued Clonidine Hcl 0.1 Mg Tablet, 1 Tab Oral Three Times A Day as needed for Elevated Blood Pressure Discontinued Metoprolol Tartrate 50 Mg Tablet, 50 Mg Oral Daily Discontinued Social History Social History Problem Response Recorded Date/Time Onset Date Status Hx Psychiatric Problems No 07/17/2017 1:50am Not Applicable Not Applicable Hx Alcohol Use No 07/17/2017 1:50am Not Applicable Not Applicable Hx Substance Use Treatment No 07/17/2017 1:50am Not Applicable Not Applicable Hx Physical Abuse No 07/17/2017 1:50am Not Applicable Not Applicable Smoking Status Start Date Stop Date Never Smoker Hospital Discharge Instructions No hospital discharge instruction information available. Plan of Care Discharge Date 07/20/17 12:41pm Disposition HOME, SELF-CARE Instructions/Education Provided Anemia Forms Provided Work/School Excuse Prescriptions See Medication Section Referrals MANSOOR BARNES (Nephrology) Order Date: 3 Days Entered Date: 07/20/2017 9:31am Address: [address] [address] BERRY PURCELL MD (Internal Medicine) Order Date: 7-10 Days Entered Date: 07/20/2017 9:31am Address: [address] [place] [address] DIEDRE VALERIO MD (Gastroenterology) Order Date: 7-10 Days Entered Date: 07/20/2017 9:48am Address: [address] [place] [address] [address] [address] Functional Status Query Response Date Recorded Assistive Devices None July 17, 2017 3:32am Ambulation Ability Total Assistance July 17, 2017 3:32am Toileting Ability Maximum Assistance July 19, 2017 6:55pm Allergies, Adverse Reactions, Alerts Allergen Type Severity Reaction Status Last Updated Ciprofloxacin Allergy Unknown Active 07/16/17 Immunizations No immunization information available. Vital Signs Acute Vital Signs Vital Response Date/Time Temperature (Fahrenheit) 98.6 degrees F (97.6 - 99.5) 07/20/2017 8:10am Pulse Pulse Rate (adult) 108 bpm (60 - 90) 07/20/2017 8:10am Respiratory Rate 18 bpm (12 - 24) 07/20/2017 8:10am Blood Pressure 136/54 mm Hg 07/20/2017 8:10am Height 4 ft 11 in 07/16/2017 9:55pm Weight 97.13 lb 07/18/2017 12:00am Body Mass Index 19.6 kg/m^2 07/18/2017 12:00am Results Laboratory Results Test Name Result Units Flags Reference Collection Date/Time Result Date/ Time Comments White Blood Count 14.03 x10e3/uL H 4.8-10.8 07/20/2017 7:11am 2017 7:33am Red Blood Count 3.35 x10e6/uL L 3.6-5.1 07/20/2017 7:11a07/20/2017 7: 33am Hemoglobin 9.2 g/dL L 12.0-16.0 07/20/2017 7:11a07/20/2017 7:33am Hematocrit 28.6 % L 34.2-44.1 07/20/2017 7:11a07/20/2017 7:33am Mean Corpuscular Volume 85.4 fL 81-99 07/20/2017 7:11a07/20/2017 7: 33am Mean Corpuscular Hemoglobin 27.5 pg L 28-32 07/20/2017 7:11a2017 7:33am Mean Corpuscular Hemoglobin Concent 32.2 g/dL 31-35 07/20/2017 7:07/20/2017 7:33am Red Cell Distribution Width 15.8 % H 11.7-14.4 07/20/2017 7:2017 7:33am Platelet Count 438 x10e3/uL H 140-360 07/20/2017 7:07/20/2017 7: 33am Neutrophils (%) (Auto) 79.6 % 38.7-80.0 07/20/2017 7:07/20/2017 7: 33am Lymphocytes (%) (Auto) 8.6 % L 18.0-39.1 07/20/2017 7:07/20/2017 7: 33am Monocytes (%) (Auto) 7.3 % 4.4-11.3 07/20/2017 7:07/20/2017 7: 33am Eosinophils (%) (Auto) 3.6 % 0.0-6.0 07/20/2017 7:07/20/2017 7: 33am Basophils (%) (Auto) 0.5 % 0.0-1.0 07/20/2017 7:07/20/2017 7:33am IM GRANULOCYTES % 0.4 % 0.0-1.0 07/20/2017 7:07/20/2017 7:33am Neutrophils # (Auto) 11.2 H 2.1-6.9 07/20/2017 7:07/20/2017 7: 33am Lymphocytes # (Auto) 1.2 1.0-3.2 07/20/2017 7:07/20/2017 7:33am Monocytes # (Auto) 1.0 H 0.2-0.8 07/20/2017 7:07/20/2017 7:33am Eosinophils # (Auto) 0.5 H 0.0-0.4 07/20/2017 7:07/20/2017 7: 33am Basophils # (Auto) 0.1 0.0-0.1 07/20/2017 7:07/20/2017 7:33am Absolute Immature Granulocyte (auto 0.06 x10e3/uL 0-0.1 07/20/2017 7: 07/20/2017 7:33am Prothrombin Time 12.1 seconds 11.9-14.5 07/16/2017 10:16pm 07/16/2017 10:52pm Prothromb Time International Ratio 0.97 07/16/2017 10:16pm 2017 10:52pm Oral Anticoagulant Therapy INR Values: 1. Low Intensity Therapy 1.5 - 2.0 2. Moderate Intensity Therapy 2.0 - 3.0 3. High Intensity Therapy(1) 2.5 - 3.5 4. High Intensity Therapy(2) 3.0 - 4.0 5. Panic Value INR > 5.0 Activated Partial Thromboplast Time 26.0 seconds 23.8-35.5 07/16/2017 10 :16pm 07/16/2017 10:52pm Urine Random Total Protein 214 mg/dL 07/19/2017 3:49pm 07/19/2017 4: 56pm Urine Collection Time 24 hrs 07/19/2017 12:30pm 07/19/2017 12:48pm Urine Total Volume 1200 ml/24hr 800-2000 07/19/2017 12:30pm 07/19/2017 12:48pm Urine Creatinine 22.87 mg/dL L 47-110 07/19/2017 3:49pm 07/19/2017 4: 39pm Urine Creatinine 24 Hour 249 mg/24hr L 600-1800 07/19/2017 12:30pm 07/19 1:15pm Creatinine Clearance 5 ml/min L 88-128 07/19/2017 12:30pm 07/19/2017 1: 15pm Urine Total Protein 24 Hour 3249.6 mg/24hr H 50-100 07/19/2017 12:30pm 07/19/2017 1:43pm Urine Protein/Creatinine Ratio 9.00 07/19/2017 3:49pm 07/19/2017 4: 56pm Sodium Level 141 mmol/L 136-145 07/20/2017 7:11am 07/20/2017 7:53am Potassium Level 3.7 mmol/L 3.5-5.1 07/20/2017 7:11am 07/20/2017 7:53am Chloride Level 107 mmol/L 98-107 07/20/2017 7:11am 07/20/2017 7:53am Carbon Dioxide Level 21 mmol/L L 22-29 07/20/2017 7:07/20/2017 7: 53am Anion Gap 16.7 mmol/L H 8-07/20/2017 7:07/20/2017 7:53am Blood Urea Nitrogen 92 mg/dL H 707/20/2017 7:07/20/2017 7:53am Creatinine 3.96 mg/dL H 0.57-1.11 07/20/2017 7:07/20/2017 7:53am BUN/Creatinine Ratio 23 6-07/20/2017 7:07/20/2017 7:53am Estimat Glomerular Filtration Rate 11 ML/MIN L 6007/20/2017 7: 7:53am Ranges were taken from the National Kidney Disease Education Program and the [employer] literature. Reference ranges: 60 or greater: Normal 16-59 (for 3 consecutive months): Chronic kidney disease 15 or less: Kidney failure Glucose Level 88 mg/dL 74-118 07/20/2017 7:07/20/2017 7:53am Calcium Level 8.6 mg/dL 8.4-10.2 07/20/2017 7:07/20/2017 7:53am Bedside Glucose 149 mg/dL H 70-120 07/20/2017 8:47am 07/20/2017 8:54am Meter ID: [id number] Uric Acid 5.1 mg/dL 2.6-8.0 07/17/2017 2:1007/17/2017 6:09pm Iron Level 248 ug/dL H 50-170 07/17/2017 2:1007/17/2017 2:36pm Total Iron Binding Capacity 283 ug/dL 261-478 07/17/2017 2:102017 2:36pm Percent Iron Saturation 88 % H 15-50 07/17/2017 2:10pm 07/17/2017 2: 36pm Transferrin 202 mg/dL 180-382 07/17/2017 2:1007/17/2017 2:36pm Total Bilirubin 0.4 mg/dL 0.2-1.2 07/20/2017 7:07/20/2017 7:53am Aspartate Amino Transf (AST/SGOT) 8 IU/L 5-34 07/20/2017 7:2017 7:53am Alanine Aminotransferase (ALT/SGPT) 9 IU/L 0-55 07/20/2017 7:11a07/20 7:53am Total Protein 6.5 g/dL 6.5-8.1 07/20/2017 7:07/20/2017 7:53am Albumin 2.9 g/dL L 3.5-5.0 07/20/2017 7:07/20/2017 7:53am Globulin 3.6 g/dL H 2.3-3.5 07/20/2017 7:07/20/2017 7:53am Albumin/Globulin Ratio 0.8 0.8-2.0 07/20/2017 7:07/20/2017 7: 53am Alkaline Phosphatase 52 IU/L 40-150 07/20/2017 7:07/20/2017 7: 53am Stool Occult Blood NEGATIVE NEGATIVE 07/19/2017 6:00pm 07/19/2017 6: 24pm Procedures Procedure Status Date Provider(s) X-ray of chest, two views Active 07/17/17 MANSOOR BARNES Ultrasound, renal Active 07/17/17 MANSOOR BARNES Encounters Encounter Location Arrival/Admit Date Discharge/Depart Date Attending Provider Discharged Inpatient [facility] 07/19/17 2:25pm 07/20/17 12:41pm NIKUNJ CARABALLO MD
== END 2017-10-08 14:36 | disposition home or self-care (01) | DRG 377 ==
LOC: ER 16:09 → ERHOLD 18:54 → ICU 22:13 → MED/SURG2 10-03 19:45 → ICU 10-03 20:15 → MED/SURG2 10-06 20:15
PROVIDERS: ADMIT Internal Medicine Cardiovascular Disease; ATTEND Internal Medicine Cardiovascular Disease
PROC: 5A1D70Z Performance of Urinary Filtration, Intermittent, Less than 6 Hours Per Day (ICD-10-PCS; 2017-10-01)
PROC: 30233N1 Transfusion of Nonautologous Red Blood Cells into Peripheral Vein, Percutaneous Approach (ICD-10-PCS; 2017-10-01)
PROC: 02HV33Z Insertion of Infusion Device into Superior Vena Cava, Percutaneous Approach (ICD-10-PCS; 2017-10-01)
PROC: 0DB78ZX Excision of Stomach, Pylorus, Via Natural or Artificial Opening Endoscopic, Diagnostic (ICD-10-PCS; principal; 2017-10-03 09:07)
DX: K26.4 Chronic or unspecified duodenal ulcer with hemorrhage (principal); N18.6 End stage renal disease; N17.0 Acute kidney failure with tubular necrosis; I12.0 Hypertensive chronic kidney disease with stage 5 chronic kidney disease or end stage renal disease; I69.354 Hemiplegia and hemiparesis following cerebral infarction affecting left non-dominant side; E44.0 Moderate protein-calorie malnutrition; R64 Cachexia; D62 Acute posthemorrhagic anemia; Z68.1 Body mass index [BMI] 19.9 or less, adult; N13.30 Unspecified hydronephrosis; N39.0 Urinary tract infection, site not specified; E87.5 Hyperkalemia; K29.71 Gastritis, unspecified, with bleeding; E11.22 Type 2 diabetes mellitus with diabetic chronic kidney disease; Z79.4 Long term (current) use of insulin; E78.5 Hyperlipidemia, unspecified; E86.0 Dehydration; G40.909 Epilepsy, unspecified, not intractable, without status epilepticus; K44.9 Diaphragmatic hernia without obstruction or gangrene; E11.42 Type 2 diabetes mellitus with diabetic polyneuropathy; Z82.49 Family history of ischemic heart disease and other diseases of the circulatory system; Z83.3 Family history of diabetes mellitus; I69.398 Other sequelae of cerebral infarction; K21.0 Gastro-esophageal reflux disease with esophagitis; K29.80 Duodenitis without bleeding
CPT/HCPCS: 36415; 36430; 43239; 51700; 70450; 71045; 76770; 80048; 80053; 81001; 82270; 82550; 82553; 82948; 83735; 84100; 84484; 85014; 85018; 85025; 85610; 85730; 86704; 86706; 86850; 86900; 86920; 87086; 87340; 88305; 88312; 90962; 93005; 99285; J0610; J1644; J2001; J3480; J7030; J7050; J7070; J7799; P9016